=== PATIENT | female | born 1985 | race Caucasian/White ===

== ENCOUNTER 2020-05-26 05:15 | Inpatient (IN) | payer OTHER, SELFPAY ==
[2020-05-26] VITALS (103 sets, daily range): BP systolic 95–159; BP diastolic 50–108; PULSE 57–173; RESP 16; TEMP 36.6–37.6; O2SAT 99–100; BMI 22.7
--- NOTE | 2020-05-26 05:46 | LDADM ---
This patient, Cindy Lewis, was admitted to Labor/Delivery/Recovery 104 on 05/26/20 at 05:15. Plans for labor, pain management and were discussed with patient. Patient/family oriented to hospital policies and general routines including ID bracelet, bed and alarms, visiting hours, pain management, procedures, bathroom and other care routines, personal items, smoking policy, room service/diet and guest tray routines, security routines, and visiting hours. Patient/Family are encouraged to report perceived risks to care and to ask questions if they do not understand what they are told or what they should do. See OBIX for further documentation.
[2020-05-26 05:57] LABS: Basophils Absolute Auto 0.1 K/mm3 (0.0-0.1); Basophils Percent Auto 1.1 % (0.2-1.2); Eosinophils Percent Auto 0.6 % (0-4.4); Hemoglobin 14.9 g/dL (12.0-15.0); Immature Granulocyte Percent A 1.5 % (0-0.5); Lymphocytes Absolute Auto 1.82 K/mm3 (0.9-3.2); Lymphocytes Percent Auto 27.6 % (18.3-44.2); Mean Corpuscular HGB Conc 35.5 g/dl (32-36); Mean Corpuscular Hemoglobin 32.5 pg (26-34); Mean Corpuscular Volume 91.5 fl (80-100); Mean Platelet Volume 10.1 fl (7.4-10.4); Monocytes Absolute Auto 0.3 K/mm3 (0.1-0.6); Neutrophils Absolute Auto 4.2 K/mm3 (1.3-6.7); Neutrophils Percent Auto 64.2 % (45.5-73.1); Platelet Count Result 183 k/mm3 (150-375); Red Blood Count 4.59 M/mm3 (4.2-5.4); Red Cell Distribution Width 12.5 % (11.5-14.5); White Blood Count 6.6 K/mm3 (4.5-10.0)
[2020-05-26 06:11] LABS: Alanine Aminotransferase 12 U/L (4-35); Albumin Level 4.1 g/dL (3.5-5.1); Alkaline Phosphatase 161 U/L (38-126); Anion Gap 8 mmol/L (8-16); Aspartate Amino Transferase 27 U/L (14-36); Bilirubin,Total 0.4 mg/dL (0.2-1.3); Blood Urea Nitrogen 8 mg/dL (7-17); Calcium 8.7 mg/dL (8.4-10.2); Carbon Dioxide 22 mmol/L (22-30); Chloride 105 mmol/L (98-107); Estimated CRCL calculation 125 ml/min; Estimated Glomerular Filt Rate > 60; Glucose 120 mg/dL (65-105); Potassium 3.3 mmol/L (3.4-5.0); Sodium 135 mmol/L (137-145)
--- NOTE | 2020-05-26 06:41 | PM.IMHP ---
H&P: HPI History of Present Illness Date/Time: 05/26/20 06:41 Chief complaint: Induction of Labor Narrative: Cindy Lewis is a 34 year old female 5 para 4 with a last menstrual period of 08/29/2019, EDC of 06/04/2020, presents at 38 and 5 7th weeks gestation for induction of labor. She has had elevated blood pressures with headache. She has not proteinuric but in light of her nearest to 39 weeks with elevated pressures and headache she is admitted for induction. Her cervix is favorable. . She is negative for group B strep Review of Systems Review of Systems: All systems reviewed & are unremarkable except as noted in HPI and below PMFSH Past Medical History Medical History MVP (mitral valve prolapse) Family History Family History Father History of blood clots Cancer Social History Social History Smoking status: Never smoker Substance use: never Gender identity (if verbalized by the patient): Female Spiritual care concerns: No Meds Home Medications and Allergies Home Medications Medication Instructions Recorded Confirmed Type PNV cmb#95-ferrous fumarate-FA 1 tablet PO DAILY 05/09/20 05/09/20 History [] Allergies Allergy/AdvReac Type Severity Reaction Status Date / Time No Known Allergies Allergy Unverified 11/17/17 06:59 Vital Signs Vital Signs - 24 hr 05/26/20 05:51 05/26/20 06:00 05/26/20 06:15 Temperature Pulse Rate 78 73 75 Blood Pressure 143/79 H 132/84 127/73 05/26/20 06:33 Temperature 99 F Pulse Rate Blood Pressure Exam Const: General: no acute distress Eyes: General: appearance normal, both eyes and all related structures Neck: Neck: supple and no JVD Thyroid: thyroid normal Resp: Effort & Inspection: normal respiratory effort Auscultation: clear to auscultation bilaterally Cardio: Rate: regular rate Rhythm: regular rhythm GI: Inspection: non-distended GI Palp: Yes Soft to palpation, No Tenderness to palpation present (GI) and No Guarding due to palpation present (GI) Auscultation: normal bowel sounds : External Female Exam: normal external appearance Speculum Exam - Vagina: normal appearance of the vagina Speculum Exam - Cervix: Cervical os closed (cx 4/75/-2. fhts ok. attempted arom) Skin: General skin exam: no rashes or lesions noted Extrem: General: normal to inspection and no edema Psych: Mental Status: mental status grossly normal Affect: normal affect H&P: Results Labs Labs: Short CBC 05/26/20 Range/Units 05:47 WBC 6.6 (4.5-10.0) K/mm3 Hgb 14.9 (12.0-15.0) g/dL Hct 42.0 (37.0-47.0) % Plt Count 183 (150-375) k/mm3 BMP 05/26/20 05:47 Sodium 135 L Potassium 3.3 L Chloride 105 Carbon Dioxide 22 BUN 8 Creatinine 0.50 L Glucose 120 H Calcium 8.7 Liver Function 05/26/20 Range/Units 05:47 Total Bilirubin 0.4 (0.2-1.3) mg/dL AST 27 (14-36) U/L ALT 12 (4-35) U/L Alkaline Phosphatase 161 H (38-126) U/L Albumin 4.1 (3.5-5.1) g/dL Assessment and Plan Additional Plan impression: 38-,5/7 weeks gestation with elevated pressures Plan: Medical induction of labor / check PIH labs / spontaneous vaginal delivery is expected
[2020-05-26] MEDS: ACETAMINOPHEN 500 MG TABLET 1000 MG PO (06:46)
[2020-05-26 08:16] LABS: Rapid Plasma Reagin Non-Reactive (NonReactive)
[2020-05-26] MEDS: LACTATED RINGERS 1,000 ML 125 ML IV CONT (08:38)
--- NOTE | 2020-05-26 08:57 | WPDANESEPP ---
Anes - Eval Pre Procedure Date/Time: 05/26/20 08:57 Pre Op Diagnosis: Induction of Labor Patient Data Age: 34 Gender: F Height: 5 ft 6 in Weight: 64 kg Last Vital Signs Temp 37.2 C 05/26/20 08:30 Pulse 83 05/26/20 08:46 BP 113/50 L 05/26/20 08:46 Allergies Allergy/AdvReac Type Severity Reaction Status Date / Time No Known Allergies Allergy Unverified 11/17/17 06:59 Home Medications Medication Instructions Recorded Confirmed Type PNV cmb#95-ferrous fumarate-FA 1 tablet PO DAILY 05/09/20 05/09/20 History [] Laboratory Tests 05/26/20 05/26/20 05/26/20 05:47 05:47 05:47 WBC 6.6 K/mm3 K/mm3 (4.5-10.0) RBC 4.59 M/mm3 M/mm3 (4.2-5.4) Hgb 14.9 g/dL g/dL (12.0-15.0) Hct 42.0 % % (37.0-47.0) MCV 91.5 fl fl (80-100) MCH 32.5 pg pg (26-34) MCHC 35.5 g/dl g/dl (32-36) RDW 12.5 % % (11.5-14.5) Plt Count 183 k/mm3 k/mm3 (150-375) MPV 10.1 fl fl (7.4-10.4) Immature Gran % (Auto) 1.5 % H % (0-0.5) Neut % (Auto) 64.2 % % (45.5-73.1) Lymph % (Auto) 27.6 % % (18.3-44.2) Beckham % (Auto) 5.0 % % (2.6-8.5) Eos % (Auto) 0.6 % % (0-4.4) Baso % (Auto) 1.1 % % (0.2-1.2) Lymph # (Auto) 1.82 K/mm3 K/mm3 (0.9-3.2) Beckham # (Auto) 0.3 K/mm3 K/mm3 (0.1-0.6) Eos # (Auto) 0.0 K/mm3 K/mm3 (0-0.3) Baso # (Auto) 0.1 K/mm3 K/mm3 (0.0-0.1) Abs Immat Gran (auto) 0.10 K/mm3 H K/mm3 (0.00-0.031) Absolute Neuts (auto) 4.2 K/mm3 K/mm3 (1.3-6.7) Absolute Nucleated RBC 0.0 K/mm3 K/mm3 (0.0-0.012) Nucleated RBC % 0.0 % % (0.0-0.2) Sodium Potassium Chloride Carbon Dioxide Anion Gap BUN Creatinine Estim Creat Clear Calc Estimated GFR Glucose Uric Acid 4.0 mg/dL mg/dL (2.5-7.5) Calcium Total Bilirubin AST ALT Alkaline Phosphatase Total Protein Albumin RPR Non-reactive (NonReactive) Blood Type Antibody Screen 05/26/20 05/26/20 05:47 05:47 WBC RBC Hgb Hct MCV MCH MCHC RDW Plt Count MPV Immature Gran % (Auto) Neut % (Auto) Lymph % (Auto) Beckham % (Auto) Eos % (Auto) Baso % (Auto) Lymph # (Auto) Beckham # (Auto) Eos # (Auto) Baso # (Auto) Abs Immat Gran (auto) Absolute Neuts (auto) Absolute Nucleated RBC Nucleated RBC % Sodium 135 mmol/L L mmol/L (137-145) Potassium 3.3 mmol/L L mmol/L (3.4-5.0) Chloride 105 mmol/L mmol/L (98-107) Carbon Dioxide 22 mmol/L mmol/L (22-30) Anion Gap 8 mmol/L mmol/L (8-16) BUN 8 mg/dL mg/dL (7-17) Creatinine 0.50 mg/dL L mg/dL (0.7-1.0) Estim Creat Clear Calc 125 ml/min ml/min Estimated GFR > 60 (59 - ) Glucose 120 mg/dL H mg/dL (65-105) Uric Acid Calcium 8.7 mg/dL mg/dL (8.4-10.2) Total Bilirubin 0.4 mg/dL mg/dL (0.2-1.3) AST 27 U/L U/L (14-36) ALT 12 U/L U/L (4-35) Alkaline Phosphatase 161 U/L H U/L (38-126) Total Protein 7.0 g/dL g/dL (6.3-8.2) Albumin 4.1 g/dL g/dL (3.5-5.1) RPR Blood Type A Positive Antibody Screen Negative Patient hx anesthesia problems: none Family hx anesthesia problems: none PMFSH Past Medical History Medical History MVP (mitral valve prolapse) Family History Fam
[2020-05-26] MEDS: OXYTOCIN 30 UNITS/NS 500 ML 30 UNITS/500 ML BAG IV CONT (10:16)
[2020-05-26] MEDS: ONDANSETRON INJ 4 MG/2 ML VIAL IV PUSH (11:01)
--- NOTE | 2020-05-26 12:03 | P.PNOB_ITS ---
OB - PN: Subj Subjective Date/time seen: 05/26/20 12:03 cx 6.5 by rn exam fhts ok comfortable OB - PN: Obj Data Labs CBC & Chem 7: 05/26/20 05:47 05/26/20 05:47 Labs: Laboratory Results - last 24 hr 05/26/20 05/26/20 05/26/20 05:47 05:47 05:47 WBC 6.6 RBC 4.59 Hgb 14.9 Hct 42.0 MCV 91.5 MCH 32.5 MCHC 35.5 RDW 12.5 Plt Count 183 MPV 10.1 Immature Gran % (Auto) 1.5 H Neut % (Auto) 64.2 Lymph % (Auto) 27.6 Jenkins % (Auto) 5.0 Eos % (Auto) 0.6 Baso % (Auto) 1.1 Lymph # (Auto) 1.82 Jenkins # (Auto) 0.3 Eos # (Auto) 0.0 Baso # (Auto) 0.1 Abs Immat Gran (auto) 0.10 H Absolute Neuts (auto) 4.2 Absolute Nucleated RBC 0.0 Nucleated RBC % 0.0 Sodium Potassium Chloride Carbon Dioxide Anion Gap BUN Creatinine Estim Creat Clear Calc Estimated GFR Glucose Uric Acid 4.0 Calcium Total Bilirubin AST ALT Alkaline Phosphatase Total Protein Albumin RPR Non-reactive Blood Type Antibody Screen 05/26/20 05/26/20 05:47 05:47 WBC RBC Hgb Hct MCV MCH MCHC RDW Plt Count MPV Immature Gran % (Auto) Neut % (Auto) Lymph % (Auto) Jenkins % (Auto) Eos % (Auto) Baso % (Auto) Lymph # (Auto) Jenkins # (Auto) Eos # (Auto) Baso # (Auto) Abs Immat Gran (auto) Absolute Neuts (auto) Absolute Nucleated RBC Nucleated RBC % Sodium 135 L Potassium 3.3 L Chloride 105 Carbon Dioxide 22 Anion Gap 8 BUN 8 Creatinine 0.50 L Estim Creat Clear Calc 125 Estimated GFR > 60 Glucose 120 H Uric Acid Calcium 8.7 Total Bilirubin 0.4 AST 27 ALT 12 Alkaline Phosphatase 161 H Total Protein 7.0 Albumin 4.1 RPR Blood Type A Positive Antibody Screen Negative OB - PN A/P Time Spent With Patient Time: Total time spent is greater than 50% in coordination of care (as documented) at patient's floor/unit and/or counseling patient:
--- NOTE | 2020-05-26 13:38 | PM.OBPRVD ---
OB - Delivery Note Procedure Delivery date: 05/26/20 Intrapartal events: None Induction method: AROM Delivery augmentation: pitocin Delivery monitor: external FHT Route of delivery: Laceration description: Perineal - 2nd Degree Delivery repair: vicryl Specimen: No Estimated blood loss (mL): 57 Anesthesia type: Epidural Disposition: floor [place] Baby Date of : 05/26/20 Time of : 13:26 Weeks of gestation at delivery: 38 gender: Male Weight (pounds): 7 Weight (ounces): 8 presentation: vertex position: Right Occiput Anterior Placenta delivery description: Spontaneous cord vessel description: 3 Vessels score one minute: 9 score five minutes: 9
[2020-05-26] MEDS: OXYTOCIN 30 UNITS/NS 500 ML 30 UNITS/500 ML BAG 125 UNITS IV CONT (14:16)
[2020-05-26] MEDS: DOCUSATE SODIUM 100 MG CAPSULE PO (17:28)
[2020-05-26] MEDS: IBUPROFEN 600 MG TABLET PO (17:28)
[2020-05-26] MEDS: BENZOCAINE 20% AER SPR (*SP) 56 GM CAN 1 SPRAY TOPICAL (17:30)
[2020-05-26] MEDS: WITCH HAZEL 40 PADS 1 PAD TOPICAL (17:30)
--- NOTE | 2020-05-26 18:47 | PC.NURSE ---
1651 Pt admitted to room 283 per wheelchair from labor and delivery after spontaneous vaginal delivery of viable male infant at [address] Lizeth Power. Mother is a and is choosing to bottle feed infant; , FOB present; couple oriented to room , staffing and procedures; admission folder reviewed. Pt's VSS and assessment WNL.
[2020-05-26] MEDS: ACETAMINOPHEN 325 MG TABLET 650 MG PO (22:30)
[2020-05-27] MEDS: IBUPROFEN 600 MG TABLET PO ×2 (05:01→11:50)
[2020-05-27 05:31] LABS: Hematocrit 32.5 % (37.0-47.0); Hemoglobin 11.3 g/dL (12.0-15.0)
--- NOTE | 2020-05-27 06:45 | PC.NURSE ---
Pt introductions made and plan of care discussed per post , pain management, bottle feeding, daily care activities and pending discharge to home. PT verbalized understanding of such care.
--- NOTE | 2020-05-27 06:46 | PM.OBPNVD ---
OB - PN: Subj Subjective Date/time seen: 05/27/20 06:46 Patient comments: no complaints and pain well controlled baby status: doing well and nursing well OB - PN: Obj Data Labs CBC & Chem 7: 05/27/20 05:01 05/26/20 05:47 Labs: Laboratory Results - last 24 hr 05/26/20 05/26/20 05/27/20 05:47 05:47 05:01 Hgb 11.3 L D Hct 32.5 L RPR Non-reactive Blood Type A Positive Antibody Screen Negative OB - PN A/P Plan day: 1 Plan: routine care, discharge home and follow up 6 weeks Time Spent With Patient Time: Total time spent is greater than 50% in coordination of care (as documented) at patient's floor/unit and/or counseling patient: Time with patient: less than 15 minutes Review of Systems Review of Systems: All systems reviewed & are unremarkable except as noted in HPI and below Exam Const: General: no acute distress Eyes: General: appearance normal, both eyes and all related structures Neck: Neck: supple and no JVD Thyroid: thyroid normal Resp: Effort & Inspection: normal respiratory effort Auscultation: clear to auscultation bilaterally Cardio: Rate: regular rate Rhythm: regular rhythm GI: Inspection: non-distended GI Palp: Yes Soft to palpation, No Tenderness to palpation present (GI) and No Guarding due to palpation present (GI) Auscultation: normal bowel sounds : General: Yes bladder normal to palpation External Female Exam: normal external appearance Speculum Exam - Vagina: normal vaginal discharge and No vaginal bleeding Speculum Exam - Cervix: nontender Bimanual exam- vagina & uterus: bladder normal to palpation and No Cervical tenderness present OB/external & speculum: No vaginal bleeding Skin: General skin exam: no rashes or lesions noted Extrem: General: normal to inspection and no edema Psych: Mental Status: mental status grossly normal Affect: normal affect
--- NOTE | 2020-05-27 06:51 | P.DS_ITS ---
DS: Admitting Diagnosis Admitting Diagnosis Admitting Diagnosis: term/gestational htn DS: Summary Time Spent with Patient Time attestation: Total time spent providing and/or coordinating discharge services: Exam Const: General: no acute distress Eyes: General: appearance normal, both eyes and all related structures Neck: Neck: supple and no JVD Thyroid: thyroid normal Resp: Effort & Inspection: normal respiratory effort Auscultation: clear to auscultation bilaterally Cardio: Rate: regular rate Rhythm: regular rhythm GI: Inspection: non-distended GI Palp: Yes Soft to palpation, No Tenderness to palpation present (GI) and No Guarding due to palpation present (GI) Auscultation: normal bowel sounds : General: Yes bladder normal to palpation External Female Exam: normal external appearance Speculum Exam - Vagina: normal vaginal discharge and No vaginal bleeding Speculum Exam - Cervix: nontender Bimanual exam- vagina & uterus: bladder normal to palpation and No Cervical tenderness present OB/external & speculum: No vaginal bleeding Skin: General skin exam: no rashes or lesions noted Extrem: General: normal to inspection and no edema Psych: Mental Status: mental status grossly normal Affect: normal affect DS: Data Data Completed and Pending Labs on day of discharge: Labs from last 24 hours 05/27/20 05/26/20 05/26/20 05:01 05:47 05:47 Hgb 11.3 L D Hct 32.5 L RPR Non-reactive Blood Type A Positive Antibody Screen Negative Discharge Plan Discharge Attending physician on discharge: Ramakrishna Ventura Consulting providers: Elio Alves Discharging Clinician: Ramakrishna Ventura Patient Disposition: Home, Self-Care Activity: may shower, no straining and pelvic rest Diet: heart healthy Patient Instructions: Antibiotic Form Stand Alone Forms: General Discharge Information Follow-up/Referrals: Ramakrishna Ventura MD [Physician] - Discharge Medications: Continued PNV cmb#95-ferrous fumarate-FA [] 28 mg iron- 800 mcg Tablet 1 tablet PO DAILY RF: 0 Date of admission: 05/26/20 05:15 Primary Care Provider: PHYSICIAN,DIRECTOR OF INTERCOLLEGIATE ATHLETICS Admitting Provider: Ramakrishna Ventura Attending physician on admission: Ramakrishna Ventura
[2020-05-27 07:50] VITALS: BP 100/62; PULSE 67; RESP 16; TEMP 36.9; O2SAT 96
--- NOTE | 2020-05-27 07:52 | WPDANLDPN2 ---
Anes-Prog Note L&D Date/Time: 05/27/20 07:52 Comfortable throughout: labor and delivery Neuraxial method: epidural Epidural/Spinal procedure site: clean & non-tender Neuro status: Neuro function grossly intact. Cardiovascular status: normal Respiratory status: normal Airway patency: baseline Mental status: baseline Post-Op hydration status: normal Vital Signs: Last Vital Signs Temp 36.6 C 05/26/20 17:51 Pulse 62 05/26/20 17:51 Resp 16 05/26/20 17:51 BP 127/62 05/26/20 17:51 Pulse Ox 100 05/26/20 17:51 I/O: Intake & Output 05/26/20 05/26/20 05/27/20 15:59 23:59 07:59 Intake Total 500 Output Total 57 Balance 443 Post-procedural complaints: none Patient feedback: Patient satisfied with anesthetic care.
[2020-05-27] MEDS: DOCUSATE SODIUM 100 MG CAPSULE PO (09:43)
[2020-05-27] MEDS: ACETAMINOPHEN 325 MG TABLET 650 MG PO (09:43)
--- NOTE | 2020-05-27 10:46 | PC.NURSE ---
Patient was given the opportunity to view the discharge video Mother & Baby Care, The First Two Weeks and to ask questions. Patient declined viewing the video and has been given the mother/baby guide for home reference.
--- NOTE | 2020-05-27 14:48 | PC.NURSE ---
PT received discharge instructions per protocol and verbalized understanding of such instructions.
--- NOTE | 2020-05-27 16:15 | PC.NURSE ---
PT discharged to home ambulatory accompanied by spouse and to waiting car. Follow up appts confirmed
[2020-05-28 11:30] VITALS: BP 127/74; PULSE 74; RESP 20; O2SAT 99
== END 2020-05-27 16:15 | disposition home or self-care (01) | DRG 807 ==
LOC: ANHLDR 05:19 → ANHOB2 16:54
PROVIDERS: Admitting Provider Obstetrics & Gynecology; Visit Provider Obstetrics & Gynecology
DX: O13.4 Gestational [pregnancy-induced] hypertension without significant proteinuria, complicating childbirth (principal); Z37.0 Single live birth; Z3A.38 38 weeks gestation of pregnancy; O70.1 Second degree perineal laceration during delivery; O99.42 Diseases of the circulatory system complicating childbirth; I34.1 Nonrheumatic mitral (valve) prolapse
CPT/HCPCS: 36415; 80053; 84550; 85014; 85018; 85025; 86592; 86850; 86900; 86901; A9270; J2405; J2590; J2795; J7120

== ENCOUNTER 2021-07-09 12:56 | Outpatient (CLI) | payer OTHER, SELFPAY ==
--- NOTE | ~2021-07-09 | US_ITS ---
EXAMINATION: US soft tissue abdomen EXAM DATE: 07/09/2021 13:50 INDICATION: Umbilical hernia w/o obstruction and w/o gangrene. TECHNIQUE: Multiple grayscale and Doppler images of the umbilical symptomatic region were obtained (anna y a technologist who performed the scan) and subsequently reviewed. There is no prior study for angel pack. FINDINGS: Probable identification of small umbilical region hernia, herniation measuring about 7 mm in diameter . This region is isoechoic to the surrounding subcutaneous fat. IMPRESSION: 1. Probable small umbilical fat-containing hernia. Reviewed, dictated and finalized at location B.
--- NOTE | ~2021-07-09 | US_ITS ---
EXAMINATION: US retroperitoneal duplex ltd EXAM DATE: 07/09/2021 13:49 INDICATION: Essential hypertension . TECHNIQUE: Multiple grayscale and Doppler images of the kidneys and renal arteries were obtained. T here is no prior study for comparison. FINDINGS: The aorta peak systolic velocity is 106 cm/s. Renal arteries interrogated in several segments from origin to hilum. RIGHT RENAL ARTERY Proximal segment (origin): 134 cm/s. Distal segment (hilum): 82 cm/s. LEFT RENAL ARTERY Proximal segment (origin): 116 cm/s. Distal segment (hilum): 120 cm/s. IMPRESSION: 1. Renal artery Doppler velocities within normal limits. Reviewed, dictated and finalized at location B.
== END 2021-07-09 12:57 ==
PROVIDERS: PCP Physician Assistant; Visit Provider Physician Assistant
DX: K42.9 Umbilical hernia without obstruction or gangrene (principal); I10 Essential (primary) hypertension
CPT/HCPCS: 76705; 93976

== ENCOUNTER → 2021-10-18 01:33 | Outpatient (CLI) | payer OTHER, SELFPAY ==
[2021-10-18 21:23] LABS: SARS-CoV-2 RNA PCR Negative
== END ==
PROVIDERS: PCP Physician Assistant; Visit Provider Physician Assistant
DX: R68.89 Other general symptoms and signs (principal); Z20.822 Contact with and (suspected) exposure to COVID-19
CPT/HCPCS: C9803; U0003; U0005

== ENCOUNTER 2022-08-12 15:21 | Outpatient (CLI) | payer OTHER, SELFPAY | END 2022-08-12 15:22 | disposition home or self-care (01) | LOC: ANHLAB 15:25 | PROVIDERS: PCP Physician Assistant; Visit Provider Obstetrics & Gynecology | DX: Z34.80 Encounter for supervision of other normal pregnancy, unspecified trimester (principal); Z3A.00 Weeks of gestation of pregnancy not specified | CPT/HCPCS: 36415; 84702 ==

== ENCOUNTER 2023-03-06 11:42 | Observation (INO) | payer OTHER, SELFPAY ==
[2023-03-06] MEDS: TERBUTALINE SULFATE 1 MG/ML VIAL 0.25 MG SUB-Q (12:05)
[2023-03-06 13:09] VITALS: BP 120/68; PULSE 80
[2023-03-06 13:31] VITALS: BP 119/77; PULSE 83
[2023-03-06 13:34] VITALS: BMI 24.2
--- NOTE | 2023-03-07 11:04 | PM.OBTRLD ---
OB - Triage/Final Diagnosis Visit Information Date of evaluation: 03/06/23 Reason for evaluation: threatened labor and other (twin ) Comments/Additional reasons for admission: I have assessed the risk for this patient, Cindy Lewis, and determined that she would benefit from observation care. Evaluation Vital signs: Vital Signs - 24 hr 03/06/23 13:09 03/06/23 13:31 03/06/23 13:34 Pulse Rate 80 83 Blood Pressure 120/68 119/77 Oxygen Delivery Room Air
== END 2023-03-06 13:50 | disposition home or self-care (01) ==
PROVIDERS: Admitting Provider Obstetrics & Gynecology; PCP Physician Assistant; Visit Provider Obstetrics & Gynecology
DX: O47.03 False labor before 37 completed weeks of gestation, third trimester (principal); O30.003 Twin pregnancy, unspecified number of placenta and unspecified number of amniotic sacs, third trimester; Z3A.34 34 weeks gestation of pregnancy
CPT/HCPCS: 59025; 96372; G0378; G0379; J3105

== ENCOUNTER 2023-03-27 09:33 | Outpatient (RCR) | payer OTHER, SELFPAY ==
[2023-02-20] VITALS (8 sets, daily range): BP systolic 124; BP diastolic 69; PULSE 66–75; O2SAT 100
[2023-02-27 10:08] VITALS: BP 120/53; PULSE 69
[2023-03-06 11:22] VITALS: BP 118/71; PULSE 81
[2023-03-13 09:35] VITALS: BP 117/67; PULSE 81
[2023-03-20 10:36] VITALS: BP 122/81; PULSE 81
[2023-03-27 10:20] VITALS: BP 131/82; PULSE 70
== END 2023-05-21 23:59 | disposition home or self-care (01) ==
LOC: ANHOBOP 09:33
PROVIDERS: PCP Physician Assistant; Visit Provider Obstetrics & Gynecology
DX: O30.003 Twin pregnancy, unspecified number of placenta and unspecified number of amniotic sacs, third trimester (principal); Z3A.32 32 weeks gestation of pregnancy
CPT/HCPCS: 59025

== ENCOUNTER 2023-03-30 05:10 | Inpatient (IN) | payer OTHER, SELFPAY ==
[2023-03-30] VITALS (160 sets, daily range): BP systolic 125–174; BP diastolic 62–114; PULSE 60–134; RESP 18; TEMP 36.4–37.3; O2SAT 98–100; BMI 25.2
--- NOTE | 2023-03-30 05:41 | LDADM ---
This patient, Cindy Lewis, was admitted to Labor/Delivery/Recovery 101 on 03/30/23 at 05:10. Plans for labor, pain management and were discussed with patient. Patient/family oriented to hospital policies and general routines including ID bracelet, bed and alarms, visiting hours, pain management, procedures, bathroom and other care routines, personal items, smoking policy, room service/diet and guest tray routines, security routines, and visiting hours. Patient/Family are encouraged to report perceived risks to care and to ask questions if they do not understand what they are told or what they should do. See OBIX for further documentation.
[2023-03-30 05:46] LABS: Basophils Absolute Auto 0.1 K/mm3 (0.0-0.1); Basophils Percent Auto 1.5 % (0.2-1.2); Eosinophils Absolute Auto 0.1 K/mm3 (0-0.3); Eosinophils Percent Auto 0.8 % (0-4.4); Hematocrit 42.1 % (37.0-47.0); Hemoglobin 13.7 g/dL (12.0-15.0); Immature Granulocyte Absolute 0.11 K/mm3 (0.00-0.031); Immature Granulocyte Percent A 1.8 % (0-0.5); Lymphocytes Absolute Auto 1.88 K/mm3 (0.9-3.2); Lymphocytes Percent Auto 31.2 % (18.3-44.2); Mean Corpuscular HGB Conc 32.5 g/dl (32-36); Mean Corpuscular Hemoglobin 28.9 pg (26-34); Mean Corpuscular Volume 88.8 fl (80-100); Mean Platelet Volume 10.8 fl (7.4-10.4); Monocytes Absolute Auto 0.3 K/mm3 (0.1-0.6); Monocytes Percent Auto 5.1 % (2.6-8.5); Neutrophils Absolute Auto 3.6 K/mm3 (1.3-6.7); Neutrophils Percent Auto 59.6 % (45.5-73.1); Platelet Count Result 177 k/mm3 (150-375); Red Blood Count 4.74 M/mm3 (4.2-5.4)
--- NOTE | 2023-03-30 06:12 | PM.IMHP ---
H&P: HPI History of Present Illness Date/Time: 03/30/23 06:12 Chief Complaint: Induction of labor at term Narrative: this is a 37-year-old 6 para 5 with twins mono diamniotic was ablated at 38 weeks gestation for induction of labor secondary to mildly elevated blood pressures. First baby is vertex 2nd was transverse. We will resume benefits of the procedure reviewed pH labs were being drawn the [facility] Past Medical History Medical History (Updated 03/30/23 @ 06:14 by Ramakrishna Power MD) MVP (mitral valve prolapse) Family History Family History Father History of blood clots Cancer Social History Social History Smoking status: Never smoker Substance use: never Lack of Transportation: No Lack of Food: Never True Current Housing: I Have Housing Concerned About Future Housing: No Difficulty Paying Gas/Electric Bills: No Difficulty Paying for Meds: No Currently Unemployed: No Education: Bachelor's Degree Difficulty w/ Childcare or Family Care: No Gender identity (if verbalized by the patient): Female Spiritual care concerns: No Meds Home Medications and Allergies Home Medications Medication Instructions Recorded Confirmed Type vit no.95-ferrous 1 tablet PO DAILY 05/09/20 05/09/20 History fumarate 28 mg-folic acid 800 mcg tablet () Allergies Allergy/AdvReac Type Severity Reaction Status Date / Time No Known Allergies Allergy Unverified 11/17/17 06:59 Exam Const: General: cooperative, healthy appearing and comfortable Nutritional Appearance: average body habitus Orientation/consciousness: oriented to person, oriented to place and oriented to time HENMT: Head: normal to inspection Resp: Effort & Inspection: normal respiratory effort Cardio: Rate: regular rate Rhythm: regular rhythm Heart sounds: S1 normal heart sound present and S2 normal heart sound present GI: Inspection: normal to inspection ( gravid soft uterus) Auscultation: normal bowel sounds : External Female Exam: normal external appearance Speculum Exam - Vagina: normal appearance of the vagina Speculum Exam - Cervix: normal appearance of the cervix ( cervix 4/80/1. AROM clear. FHTs reassuring x2) H&P: Results Labs Labs: Short CBC 06/15/23 Range/Units 05:28 WBC 6.0 (4.5-10.0) K/mm3 Hgb 13.7 (12.0-15.0) g/dL Hct 42.1 (37.0-47.0) % Plt Count 177 (150-375) k/mm3 Assessment and Plan Assessment and plan (1) Twin : Code(s): O30.009 - Twin , unspecified number of placenta and unspecified number of amniotic sacs, unspecified trimester Status: Acute (2) Term : Code(s): Z34.90 - Encounter for supervision of normal , unspecified, unspecified trimester Status: Acute Plan medical induction of labor. Spontaneous vaginal delivery expected. She is an epidural candidate. Double setup OB undertaken
[2023-03-30] MEDS: AMPICILLIN 2 GM/NS 100 ML 2 GM/100 ML BAG IVPB (06:27)
[2023-03-30] MEDS: LACTATED RINGERS 1,000 ML 125 ML IV CONT ×3 (06:27→12:03)
[2023-03-30] MEDS: OXYTOCIN 30 UNITS/NS 500 ML 30 UNITS/500 ML BAG IV CONT (06:28)
--- NOTE | 2023-03-30 07:18 | WPDANESEPPF ---
Anes - Initial Pre Proc Eval Procedure: labor epidural Date/Time: 03/30/23 07:18 Surgeon: Ramakrishna Power MD Pre Op Diagnosis: IUP, labor pain Pre Op Diagnosis: Induction of Labor Patient Data Age: 37 Gender: F Height: 1.68 m Weight: 71 kg Allergies Allergy/AdvReac Type Severity Reaction Status Date / Time No Known Allergies Allergy Unverified 11/17/17 06:59 Home Medications Medication Instructions Recorded Confirmed Type vit no.95-ferrous 1 tablet PO DAILY 05/09/20 05/09/20 History fumarate 28 mg-folic acid 800 mcg tablet () Laboratory Tests 03/30/23 05:28 WBC 6.0 K/mm3 (4.5-10.0) RBC 4.74 M/mm3 (4.2-5.4) Hgb 13.7 g/dL (12.0-15.0) Hct 42.1 % (37.0-47.0) MCV 88.8 fl (80-100) MCH 28.9 pg (26-34) MCHC 32.5 g/dl (32-36) RDW 13.0 % (11.5-14.5) Plt Count 177 k/mm3 (150-375) MPV 10.8 H fl (7.4-10.4) Immature Gran % (Auto) 1.8 H % (0-0.5) Neut % (Auto) 59.6 % (45.5-73.1) Lymph % (Auto) 31.2 % (18.3-44.2) Sutter % (Auto) 5.1 % (2.6-8.5) Eos % (Auto) 0.8 % (0-4.4) Baso % (Auto) 1.5 H % (0.2-1.2) Lymph # (Auto) 1.88 K/mm3 (0.9-3.2) Sutter # (Auto) 0.3 K/mm3 (0.1-0.6) Eos # (Auto) 0.1 K/mm3 (0-0.3) Baso # (Auto) 0.1 K/mm3 (0.0-0.1) Abs Immat Gran (auto) 0.11 H K/mm3 (0.00-0.031) Absolute Neuts (auto) 3.6 K/mm3 (1.3-6.7) Absolute Nucleated RBC 0.0 K/mm3 (0.0-0.012) Nucleated RBC % 0.0 % (0.0-0.2) RPR Pending Blood Type A Positive Antibody Screen Positive Antibody Identification Pending Antigen Identification Pending LAUREL, IgG Interpret Not Performed LAUREL, Poly Interpret Neg LAUREL, Complement Interp Not Performed HCG: positive (CELINE 04/14/23) Patient hx anesthesia problems: none Family hx anesthesia problems: none Results Review: All pre-operative results and documents have been reviewed as part of the pre-operative evaluation. [facility] Past Medical History Medical History MVP (mitral valve prolapse) Family History Family History Father History of blood clots Cancer Social History Social History Smoking status: Never smoker Substance use: never Lack of Transportation: No Lack of Food: Never True Current Housing: I Have Housing Concerned About Future Housing: No Difficulty Paying Gas/Electric Bills: No Difficulty Paying for Meds: No Currently Unemployed: No Education: Bachelor's Degree Difficulty w/ Childcare or Family Care: No Gender identity (if verbalized by the patient): Female Spiritual care concerns: No Anes - Eval Final PreProcedure Day of Procedure 03/30/23 07:18 Neurological: alert and oriented Last oral intake: >/= 8 hours ASA classification: III Emergent: no Anesthetic plan: proceed Anesthesia type and monitoring: regional epidural Results Review: All pre-operative results and documents have been reviewed as part of the pre-operative evaluation. Informed Consent: The patient's anesthetic plan and its attendant risks and benefits were discussed with the patient/family/POA. Questions were solicited and answers provided to the satisfaction of the patient/family/POA.
[2023-03-30 09:12] LABS: Alanine Aminotransferase 16 U/L (6-35); Albumin Level 3.7 g/dL (3.5-5.1); Alkaline Phosphatase 182 U/L (38-126); Anion Gap 6 mmol/L (8-16); Aspartate Amino Transferase 34 U/L (14-36); Bilirubin,Total 0.4 mg/dL (0.2-1.3); Blood Urea Nitrogen 9 mg/dL (7-17); Calcium 8.1 mg/dL (8.4-10.2); Carbon Dioxide 23 mmol/L (22-30); Chloride 108 mmol/L (98-107); Estimated CRCL calculation 103 ml/min; Estimated Glomerular Filt Rate > 60; Glucose 64 mg/dL (65-110); Potassium 3.6 mmol/L (3.4-5.0); Sodium 137 mmol/L (137-145); Uric Acid 5.5 mg/dL (2.5-7.5)
[2023-03-30] MEDS: AMPICILLIN 1 GM/NS 50 ML 1 GM/50 ML BAG IVPB (10:31)
--- NOTE | 2023-03-30 12:11 | PM.OBPNLAB ---
Pain Control Date/time seen: 03/30/23 12:11 Pain control: tolerating well and epidural Pelvic Exam Dilation (cm): 8 Effacement (%): 80 station: -1 Amniotic membrane status: Leaking
[2023-03-30] MEDS: CALCIUM CARBONATE (TUMS) 500 MG (200 MG ELEMENTAL) PO (13:00)
[2023-03-30 14:00] LABS: Rapid Plasma Reagin Non-Reactive (NonReactive)
--- NOTE | 2023-03-30 14:55 | PM.OBPRVD ---
OB - Delivery Note Procedure Delivery date: 03/30/23 Procedure: mil Events: Gestational Hypertension Induction method: AROM Delivery augmentation: Pitocin Delivery monitor: External FHT and External Uterine Route of delivery: Episiotomy description: None Laceration Description: Perineal - 2nd Degree Delivery repair: vicryl Specimen: No Quantitative Blood Loss (ml): 160 Anesthesia type: Epidural Disposition: Floor Baby Date of : 03/30/23 Weeks of gestation at delivery: 38 gender: Female Weight (pounds): 5 Weight (ounces): 4 presentation: vertex position: Right Occiput Anterior Placenta delivery description: Spontaneous Cord Vessel Description: 3 Vessels score one minute: 8 score five minutes: 9 Twins 2: Date of : 03/30/23 Weeks of gestation at delivery: 38 Infant gender: Female Weight (pounds): 6 Weight (ounces): 1 presentation: breech position: Right Sacrum Anterior Placental delivery description: Spontaneous Cord Vessel Description: 3 Vessels score one minute: 8 score five minutes: 9
[2023-03-30] MEDS: OXYTOCIN 30 UNITS/NS 500 ML 30 UNITS/500 ML BAG 125 UNITS IV CONT (15:16)
[2023-03-30] MEDS: ACETAMINOPHEN 325 MG TABLET 650 MG PO (15:44)
[2023-03-30] MEDS: WITCH HAZEL 40 PADS 1 PAD TOPICAL (15:46)
--- NOTE | 2023-03-30 18:25 | PC.NURSE ---
Patient transferred to post room # 277 via (W/C). Support person present. Oriented to unit, room, information board, rooming in, admission packet and security measures. Patient verbalizes understanding.
[2023-03-31] MEDS: IBUPROFEN 600 MG TABLET PO ×3 (00:19→17:53)
[2023-03-31 01:14] VITALS: BP 136/89; PULSE 64; RESP 16; TEMP 37; O2SAT 98
[2023-03-31 05:06] VITALS: BP 125/78; PULSE 87; RESP 18; TEMP 36.6; O2SAT 98
[2023-03-31] MEDS: ACETAMINOPHEN 325 MG TABLET 650 MG PO ×3 (05:18→17:53)
[2023-03-31 05:55] LABS: Hematocrit 31.6 % (37.0-47.0); Hemoglobin 10.3 g/dL (12.0-15.0)
--- NOTE | 2023-03-31 08:30 | PC.NURSE ---
PT introductions made and plan of care discussed per post , pain management, bottle feeding, daily care activities and pending discharge to home. PT and spouse both recipients of such instructions and no barriers to learning identified. PT received such instructions per one to one discussion, mom baby care guide and demonstrations this shift. PT verbalized understanding of such care.
[2023-03-31 08:48] VITALS: PULSE 64; RESP 16; O2SAT 99
[2023-03-31] MEDS: MULTIVIT/MIN/PREN/FOL AC/IRON TABLET 1 TAB PO (08:48)
[2023-03-31] MEDS: DOCUSATE SODIUM 100 MG CAPSULE PO ×2 (08:48→17:54)
[2023-03-31 08:50] VITALS: BP 127/65; PULSE 63; RESP 16; TEMP 36.5; O2SAT 98
--- NOTE | 2023-03-31 08:50 | PM.DS ---
DS: Admitting Diagnosis Discharge Date 03/31/2023 Admitting Diagnosis twin at 38 weeks gestation with mild gestational hypertension DS: Discharge Diagnosis Discharge Diagnosis (1) Term : Code(s): Z34.90 - Encounter for supervision of normal , unspecified, unspecified trimester Status: Acute (2) Twin : Code(s): O30.009 - Twin , unspecified number of placenta and unspecified number of amniotic sacs, unspecified trimester Status: Acute (3) Gestational hypertension: Code(s): O13.9 - Gestational [-induced] hypertension without significant proteinuria, unspecified trimester Status: Acute DS: Summary Hospital Course Reason for hospitalization: induction of labor at term twins Hospital Course: patient underwent successful medical induction of labor for twins on 03/30/2023. Baby a was vertex baby B was breech. Her 24hour course was unremarkable. Her blood pressures remained stable. She was up, voiding difficulty, eating ambulating, breast-feeding, generally without complaints. Time Spent with Patient Time attestation: Total time spent providing and/or coordinating discharge services: Exam Const: General: cooperative, healthy appearing and comfortable Nutritional Appearance: average body habitus Orientation/consciousness: oriented to person, oriented to place and oriented to time HENMT: Head: normal to inspection Resp: Effort & Inspection: normal respiratory effort GI: Inspection: normal to inspection ( Fundus firm below the umbilicus) DS: Data Data Completed and Pending Labs on day of discharge: Labs from last 24 hours 03/31/23 03/30/23 03/30/23 05:45 08:38 05:28 Hgb 10.3 L D Hct 31.6 L Sodium 137 Potassium 3.6 Chloride 108 H Carbon Dioxide 23 Anion Gap 6 L BUN 9 Creatinine 0.60 L Estim Creat Clear Calc 103 Estimated GFR > 60 Glucose 64 L Uric Acid 5.5 Calcium 8.1 L Total Bilirubin 0.4 AST 34 ALT 16 Alkaline Phosphatase 182 H Total Protein 7.0 Albumin 3.7 RPR Non-reactive Antibody Identification Inconclusive Antigen Identification TNP Discharge Plan Discharge Attending physician on discharge: Ramakrishna Morales Discharging Clinician: Ramakrishna Morales Patient Disposition: Home, Self-Care Activity: may shower and pelvic rest Diet: heart healthy Patient Instructions: Antibiotic Form Stand Alone Forms: General Discharge Information Follow-up/Referrals: Ramakrishna Morales MD [Physician] - Discharge Medications: Continued PNV cmb#95-ferrous fumarate-FA [] 28 mg iron- 800 mcg Tablet 1 tablet PO DAILY Date of admission: 03/30/23 05:10 Primary Care Provider: Tere,Bessie Fowler Admitting Provider: Ramakrishna Morales Attending physician on admission: Ramakrishna Morales Condition: Stable
--- NOTE | 2023-03-31 08:53 | PM.OBPNVD ---
OB - PN: Subj Subjective Date/time seen: 03/31/23 08:53 Patient comments: no complaints and pain well controlled baby status: doing well and nursing well OB - PN: Obj Data Labs 03/31/23 05:45 03/30/23 08:38 Labs: Laboratory Results - last 24 hr 03/30/23 03/30/23 03/31/23 05:28 08:38 05:45 Hgb 10.3 L D Hct 31.6 L Sodium 137 Potassium 3.6 Chloride 108 H Carbon Dioxide 23 Anion Gap 6 L BUN 9 Creatinine 0.60 L Estim Creat Clear Calc 103 Estimated GFR > 60 Glucose 64 L Uric Acid 5.5 Calcium 8.1 L Total Bilirubin 0.4 AST 34 ALT 16 Alkaline Phosphatase 182 H Total Protein 7.0 Albumin 3.7 RPR Non-reactive Antibody Identification Inconclusive Antigen Identification TNP OB - PN A/P Plan day: 1 Plan: routine care, discharge home and follow up 6 weeks Time Spent With Patient Time: Total time spent is greater than 50% in coordination of care (as documented) at patient's floor/unit and/or counseling patient: Time with patient: less than 15 minutes Exam Const: General: cooperative, healthy appearing and comfortable Nutritional Appearance: average body habitus Orientation/consciousness: oriented to person, oriented to place and oriented to time Limitations: no limitations Resp: Effort & Inspection: normal respiratory effort GI: Inspection: normal to inspection ( fundus firm below the umbilicus)
[2023-03-31 12:20] VITALS: BP 125/63; PULSE 64; RESP 16; TEMP 37.1; O2SAT 99
--- NOTE | 2023-03-31 12:59 | WPDANLDPN2 ---
Anes-Prog Note L&D Date/Time: 03/31/23 12:59 Neuro status: Neuro function grossly intact. Vital Signs: Last Vital Signs Temp 37.1 C 03/31/23 12:20 Pulse 64 03/31/23 12:20 Resp 16 03/31/23 12:20 BP 125/63 03/31/23 12:20 Pulse Ox 99 03/31/23 12:20 O2 Del Method Room Air 03/30/23 20:52 Pain score (VAS): 0 I/O: Intake & Output 03/30/23 03/31/23 03/31/23 23:59 07:59 15:59 Intake Total 1000 550 Output Total 568 820 Balance 432 -270 Patient feedback: Patient satisfied with anesthetic care.
[2023-03-31] MEDS: TETANUS,DIPHTHERIA,AC PERTUSSIS ADULT (0.5 ML) BOOSTRIX IM (13:51)
--- NOTE | 2023-03-31 17:23 | PC.NURSE ---
PT received discharge instructions per protocol and verbalized understanding of such care.
--- NOTE | 2023-03-31 18:22 | PC.NURSE ---
PT discharged to home ambulatory accompanied by spouse and infants and taken to waiting car. follow up appts confirmed
[2023-04-03 10:36] VITALS: BP 132/90; PULSE 68; RESP 18; TEMP 36.7; O2SAT 100
== END 2023-03-31 18:22 | disposition home or self-care (01) | DRG 805 ==
LOC: ANHLDR 05:14 → ANHOB2 18:38
PROVIDERS: Admitting Provider Obstetrics & Gynecology; PCP Physician Assistant; Visit Provider Obstetrics & Gynecology
DX: O30.033 Twin pregnancy, monochorionic/diamniotic, third trimester (principal); O99.42 Diseases of the circulatory system complicating childbirth; Z37.2 Twins, both liveborn; O32.8XX2 Maternal care for other malpresentation of fetus, fetus 2; I34.1 Nonrheumatic mitral (valve) prolapse; O13.4 Gestational [pregnancy-induced] hypertension without significant proteinuria, complicating childbirth; O70.1 Second degree perineal laceration during delivery; Z3A.37 37 weeks gestation of pregnancy
CPT/HCPCS: 36415; 59025; 80053; 84550; 85014; 85018; 85025; 86592; 86850; 86870; 86880; 86900; 86901; 86902; 86971; 90715; A9270; J0290; J2590; J2795; J7120

== ENCOUNTER 2023-05-09 16:05 | Day surgery (SDC) | payer OTHER, SELFPAY ==
[2023-05-09 16:17] VITALS: BP 148/83; PULSE 80; RESP 19; TEMP 37.3; O2SAT 100
[2023-05-09 16:55] LABS: Basophils Absolute Auto 0.1 K/mm3 (0.0-0.1); Basophils Percent Auto 1.3 % (0.2-1.2); Eosinophils Absolute Auto 0.1 K/mm3 (0-0.3); Eosinophils Percent Auto 2.5 % (0-4.4); Hemoglobin 13.5 g/dL (12.0-15.0); Immature Granulocyte Absolute 0.03 K/mm3 (0.00-0.031); Immature Granulocyte Percent A 0.5 % (0-0.5); Lymphocytes Absolute Auto 1.65 K/mm3 (0.9-3.2); Mean Corpuscular HGB Conc 32.1 g/dl (32-36); Mean Platelet Volume 9.2 fl (7.4-10.4); Monocytes Absolute Auto 0.3 K/mm3 (0.1-0.6); Monocytes Percent Auto 6.2 % (2.6-8.5); Neutrophils Absolute Auto 3.3 K/mm3 (1.3-6.7); Neutrophils Percent Auto 59.5 % (45.5-73.1); Platelet Count Result 254 k/mm3 (150-375); Red Blood Count 4.83 M/mm3 (4.2-5.4); Red Cell Distribution Width 13.8 % (11.5-14.5); White Blood Count 5.5 K/mm3 (4.5-10.0)
--- NOTE | 2023-05-09 17:02 | ED.FEMALEGU ---
HPI - Female Genitourinary General Chief complaint: Vaginal Bleeding Stated complaint: 6 wks PP, heavy vag bleeding Time Seen by Provider: 05/09/23 16:32 Source: patient, RN notes reviewed and old records reviewed Mode of arrival: ambulatory Limitations: no limitations History of Present Illness HPI Narrative: THis is a 37 year old female 6 weeks who presents for evaluation of heavy vaginal bleeding . Patient states she had a twin vaginal delivery 6 weeks ago . SHe had been having some minor bleeding but it became heavy 4 to 5 days ago. SHe reports she is passing clots. She reports her bleeding worsened today. She is going through a pad and tampon every 45 minutes. She was seen by Dr. Lizeth Power yesterday, and she was started on Slynd yesterday. She reports she was told to come to ER for evaluation. She had minor cramping. Related Data Home Medications Medication Instructions Recorded Confirmed vit no.95-ferrous 1 tablet PO DAILY 05/09/20 05/09/20 fumarate 28 mg-folic acid 800 mcg tablet () Allergies Allergy/AdvReac Type Severity Reaction Status Date / Time No Known Allergies Allergy Verified 05/09/23 18:08 Review of Systems Review of Systems: All systems reviewed & are unremarkable except as noted in HPI and below PMFSH Past Medical History Medical History MVP (mitral valve prolapse) Surgical History Surgical History H/O dilation and curettage Family History Family History Father History of blood clots Cancer Social History Social History Smoking status: Never smoker Substance use: never Lack of Transportation: No Lack of Food: Never True Current Housing: I Have Housing Concerned About Future Housing: No Difficulty Paying Gas/Electric Bills: No Difficulty Paying for Meds: No Currently Unemployed: No Education: Bachelor's Degree Difficulty w/ Childcare or Family Care: No Gender identity (if verbalized by the patient): Female Spiritual care concerns: No Exam Const: General: no acute distress and alert Nutritional Appearance: well nourished Orientation/consciousness: patient oriented x3 HENMT: Head: normal to inspection Eyes: EOM: EOMs intact bilaterally Chest: Chest palpation & inspection: normal inspection of the chest Resp: Effort & Inspection: normal respiratory effort Auscultation: clear to auscultation bilaterally Cardio: Rate: regular rate Rhythm: regular rhythm Heart sounds: no murmurs GI: GI Palp: Yes Soft to palpation, No Tenderness to palpation present (GI), No Guarding due to palpation present (GI) and No Rigid due to palpation Auscultation: normal bowel sounds : Speculum Exam - Vagina: vaginal bleeding (dark blood pooling in vault, no clots, able to clear, then oozing left) Speculum Exam - Cervix: normal appearance of the cervix Skin: General skin exam: normal color Rashes: no rashes Wounds: no wounds Neuro: General: patient oriented x3, moves all extremities and CN's II-XI intact bilaterally Extrem: General: normal to inspection Psych: Appearance: grossly normal Mental Status: mental status grossly normal Affect: normal affect Attitude: cooperative Course Reevaluation(s) Reevaluation #1: Dr Lizeth Power came to ER and he will take patient to OR for D and C Date: 05/09/23 Time: 17:36 Vital Signs Vital signs: Vital Signs Temperature 99.2 F 05/09/23 16:17 Pulse Rate 80 05/09/23 16:17 Respiratory Rate 19 05/09/23 16:17 Blood Pressure 148/83 H 05/09/23 16:17 Pulse Oximetry 100 05/09/23 16:17 Oxygen Delivery Room Air 05/09/23 16:17 Temperature 99.2 F 05/09/23 16:17 Pulse Rate 72 05/09/23 19:00 Respiratory Rate 12 05/09/23 19:00 Blood Pre
[2023-05-09 17:07] LABS: INR 0.9; Prothrombin Time 12.7 Seconds (11.1-14.7)
[2023-05-09 17:08] LABS: Partial Thromboplastin Time 24.9 SECONDS (22.3-36.8)
--- NOTE | 2023-05-09 17:31 | PC.NURSE ---
Procedure reviewed with pt by Dr. Lizeth Power. pt voiced positive understanding, consent obtained for Hysteroscopy with dilatation and Curettage.
--- NOTE | 2023-05-09 17:32 | PM.IMHP ---
H&P: HPI History of Present Illness Date/Time: 05/09/23 17:32 Chief Complaint: The vaginal bleeding 6 weeks Narrative: since 14/04 female grand multiparous delivered twin 6 weeks ago bleeding began to corn picker and she was seen 2 days ago with a hemoglobin of 13 point. She was placed on progesterone control pill to no success she continues to bleed now heavily and is admitted for hysteroscopy dilatation curettage risks and benefits reviewed including not exclusive , aspiration bleeding, transfusion, perforation injury to bowel, bladder, ureters, or other internal organs with need for laparotomy. [facility] Past Medical History Medical History MVP (mitral valve prolapse) Surgical History Surgical History H/O dilation and curettage Family History Family History Father History of blood clots Cancer Social History Social History Smoking status: Never smoker Substance use: never Lack of Transportation: No Lack of Food: Never True Current Housing: I Have Housing Concerned About Future Housing: No Difficulty Paying Gas/Electric Bills: No Difficulty Paying for Meds: No Currently Unemployed: No Education: Bachelor's Degree Difficulty w/ Childcare or Family Care: No Gender identity (if verbalized by the patient): Female Spiritual care concerns: No Meds Home Medications and Allergies Home Medications Medication Instructions Recorded Confirmed Type vit no.95-ferrous 1 tablet PO DAILY 05/09/20 05/09/20 History fumarate 28 mg-folic acid 800 mcg tablet () Allergies Allergy/AdvReac Type Severity Reaction Status Date / Time No Known Allergies Allergy Unverified 11/17/17 06:59 Vital Signs Vital Signs - 24 hr 05/09/23 16:17 Temperature 99.2 F Pulse Rate 80 Respiratory Rate 19 Blood Pressure 148/83 H Pulse Oximetry 100 Oxygen Delivery Room Air Exam Const: General: cooperative, healthy appearing and comfortable Nutritional Appearance: average body habitus Orientation/consciousness: oriented to person, oriented to place and oriented to time HENMT: Head: normal to inspection Resp: Effort & Inspection: normal respiratory effort Cardio: Rate: regular rate Rhythm: regular rhythm Heart sounds: S1 normal heart sound present and S2 normal heart sound present GI: Inspection: normal to inspection : External Female Exam: normal external appearance Speculum Exam - Vagina: normal appearance of the vagina and vaginal bleeding Speculum Exam - Cervix: normal appearance of the cervix Bimanual exam- vagina & uterus: enlarged Bimanual Exam- Adnexa, other: normal adnexae H&P: Results Labs Labs: Short CBC 05/09/23 Range/Units 16:45 WBC 5.5 (4.5-10.0) K/mm3 Hgb 13.5 D (12.0-15.0) g/dL Hct 42.0 (37.0-47.0) % Plt Count 254 (150-375) k/mm3 Assessment and Plan Assessment and plan (1) Vaginal bleeding: Code(s): N93.9 - Abnormal uterine and vaginal bleeding, unspecified Status: Acute Plan hysteroscopy/dilatation curettage
--- NOTE | 2023-05-09 17:51 | WPDHPUPDATE1 ---
History and Physical Update Update Date/Time: 05/09/23 17:51 History and Physical has been reviewed, including an updated exam of the patient. There are NO changes in the patient's condition. Risks, benefits, and alternatives have been discussed and questions answered. Patient agrees to proceed with procedure.
[2023-05-09 17:56] VITALS: BP 153/86; PULSE 74; RESP 17; O2SAT 100
--- NOTE | 2023-05-09 18:32 | WPDANESEPPF ---
Anes - Initial Pre Proc Eval Procedure: Operation Date: 05/09/23 18:30 Proposed Procedures p D&C Suction and Sharp - Ramakrishna Power MD Date/Time: 05/09/23 18:32 Surgeon: Ramakrishna Power MD Pre Op Diagnosis: 6 wks PP, heavy vag bleeding Patient Data Age: 37 Gender: F Height: 1.68 m Weight: 61.6 kg Last Vital Signs Temp 37.3 C 05/09/23 16:17 Pulse 74 05/09/23 17:56 Resp 17 05/09/23 17:56 BP 153/86 H 05/09/23 17:56 Pulse Ox 100 05/09/23 17:56 O2 Del Method Room Air 05/09/23 16:17 Allergies Allergy/AdvReac Type Severity Reaction Status Date / Time No Known Allergies Allergy Verified 05/09/23 18:08 Home Medications Medication Instructions Recorded Confirmed Type vit no.95-ferrous 1 tablet PO DAILY 05/09/20 05/09/20 History fumarate 28 mg-folic acid 800 mcg tablet () hydrocodone 5 mg-acetaminophen 325 1 tablet PO Q4H PRN pain #20 tabs 05/09/23 Rx mg tablet Laboratory Tests 05/09/23 16:45 WBC 5.5 K/mm3 (4.5-10.0) RBC 4.83 M/mm3 (4.2-5.4) Hgb 13.5 D g/dL (12.0-15.0) Hct 42.0 % (37.0-47.0) MCV 87.0 fl (80-100) MCH 28.0 pg (26-34) MCHC 32.1 g/dl (32-36) RDW 13.8 % (11.5-14.5) Plt Count 254 k/mm3 (150-375) MPV 9.2 fl (7.4-10.4) Immature Gran % (Auto) 0.5 % (0-0.5) Neut % (Auto) 59.5 % (45.5-73.1) Lymph % (Auto) 30.0 % (18.3-44.2) [place] % (Auto) 6.2 % (2.6-8.5) Eos % (Auto) 2.5 % (0-4.4) Baso % (Auto) 1.3 H % (0.2-1.2) Lymph # (Auto) 1.65 K/mm3 (0.9-3.2) [place] # (Auto) 0.3 K/mm3 (0.1-0.6) Eos # (Auto) 0.1 K/mm3 (0-0.3) Baso # (Auto) 0.1 K/mm3 (0.0-0.1) Abs Immat Gran (auto) 0.03 K/mm3 (0.00-0.031) Absolute Neuts (auto) 3.3 K/mm3 (1.3-6.7) Absolute Nucleated RBC 0.0 K/mm3 (0.0-0.012) Nucleated RBC % 0.0 % (0.0-0.2) PT 12.7 Seconds (11.1-14.7) INR 0.9 APTT 24.9 SECONDS (22.3-36.8) Blood Type Pending Antibody Screen Pending Patient hx anesthesia problems: none Family hx anesthesia problems: none Results Review: All pre-operative results and documents have been reviewed as part of the pre-operative evaluation. [facility] Past Medical History Medical History MVP (mitral valve prolapse) Surgical History Surgical History H/O dilation and curettage Family History Family History Father History of blood clots Cancer Social History Social History Smoking status: Never smoker Substance use: never Lack of Transportation: No Lack of Food: Never True Current Housing: I Have Housing Concerned About Future Housing: No Difficulty Paying Gas/Electric Bills: No Difficulty Paying for Meds: No Currently Unemployed: No Education: Bachelor's Degree Difficulty w/ Childcare or Family Care: No Gender identity (if verbalized by the patient): Female Spiritual care concerns: No Anes - Eval Final PreProcedure Day of Procedure 05/09/23 18:32 Patient weight: normal Heart: regular rate and rhythm Lungs: clear to auscultation Airway: Mallampati scale class II Neurological: alert and oriented Last oral intake: >/= 8 hours ASA classification: II Emergent: yes Anesthetic plan: proceed Anesthesia type and monitoring: general GIVS and standard monitoring Results Review: All pre-operative results and documents have been reviewed as part of the pre-operative evaluation. Informed Consent: The patient's anesthetic plan and its attendant risks and benefits were discussed with the patient/family/POA. Questions were solicited and answers provided to the satisfaction of the patient/family/POA.
[2023-05-09] MEDS: LIDOCAINE HCL 1% LOCAL INJ 20 ML VIAL INFILTRATE (18:46)
--- NOTE | 2023-05-09 18:58 | P.OP_ITS ---
Procedure Note - Detailed Date of Procedure 05/09/23 Pre-op Diagnosis 6 wks PP, heavy vag bleeding Post-op Diagnosis Same Procedure Performed Hysteroscopy/ dilatation curettage Surgeon Ramakrishna Power MD Anesthesia MAC and Local Indications this is a 37-year-old female multiple 6 weeks out from delivery with vaginal bleeding refractory to Findings uterus sounded 10cm. Thick irregular endometrial tissue was present Description of Procedure the patient is prepped draped sterile fashion placed dorsal lithotomy position. Under excellent IV sedation weighted speculum placed posterior vagina. Ant erior lip of cervix grasped single-tooth tenaculum. 2.5cc 1% xylocaine anesthesia placed at 2, 4, 8, 10:00 a.m. the cervix. Uterus sounded to 10cm. Serial dilatation with fragmented dilators performed followed passes the [facility] hysteroscope. Thick irregular endometrial tissue was seen. It did not appear to be placental in nature. Uterus was then scraped over the entire 360? removing a large amount of thick irregular endometrium. When a good grating sound was heard the instruments were withdrawn. Blood loss estimated 25cc. All sponge, needle, instrument counts were correct. There were no immediate complications Estimated Blood Loss 25 Drains No Packing No Pathology Yes Complications No immediate complications Condition Stable Disposition PACU
[2023-05-09 19:00] VITALS: BP 125/76; PULSE 72; RESP 12; O2SAT 99
[2023-05-09] MEDS: LACTATED RINGERS 1,000 ML 30 ML IV CONT (19:00)
[2023-05-09 19:30] VITALS: BP 124/83; PULSE 70; O2SAT 98
[2023-05-09 19:45] VITALS: BP 140/83; PULSE 63
--- NOTE | 2023-05-09 20:02 | SUR.PHASEII ---
A prescription for [place] did not print in the surgery department for this patient. Patient stated to RN, I will be fine with just Tylenol and ibuprofen.
== END 2023-05-09 19:58 | disposition home or self-care (01) ==
LOC: ANHED 17:37 → ANHSURGERY 17:56
PROVIDERS: Emergency Provider General Practice; PCP Physician Assistant; Visit Provider Obstetrics & Gynecology
PROC: (CPT 59160; principal; 2023-05-09 18:30)
DX: O72.1 Other immediate postpartum hemorrhage (principal)
CPT/HCPCS: 59160; 36415; 85025; 85610; 85730; 86850; 86900; 86901; 88305; 99285; J1100; J1885; J2250; J2405; J2704; J3010; J7120

== ENCOUNTER → 2023-08-14 12:48 | Outpatient (CLI) | payer OTHER, SELFPAY ==
--- NOTE | ~2023-08-14 | MR_ITS ---
EXAMINATION: MR brain/brain stem wo/w con DATE: 08/14/2023 13:23 INDICATION: New daily persistent headache. TECHNIQUE: Magnetic resonance imaging (MRI) of the brain and brainstem was performed without and with 12 mL MultiHance intravenous contrast. COMPARISON: None. FINDINGS: There is no intracranial hemorrhage, acute infarction, or abnormal intracranial mass lesion . The ventricles are normal in size. The orbits are normal. The paranasal sinuses are clear. The mast oid air cells are normal. IMPRESSION: 1. Normal brain. Reviewed, dictated and finalized at location E. IMPRESSION: 1. Normal brain.
== END ==
PROVIDERS: PCP Physician Assistant; Visit Provider Physician Assistant
DX: G44.52 New daily persistent headache (NDPH) (principal)
CPT/HCPCS: 70553; A9577

== ENCOUNTER 2023-10-02 15:35 | Outpatient (CLI) | payer OTHER, SELFPAY ==
[2023-10-02 16:55] LABS: Basophils Absolute Auto 0.1 K/mm3 (0.0-0.1); Basophils Percent Auto 0.9 % (0.2-1.2); Eosinophils Absolute Auto 0.1 K/mm3 (0-0.3); Eosinophils Percent Auto 1.5 % (0-4.4); Hematocrit 39.3 % (37.0-47.0); Hemoglobin 13.2 g/dL (12.0-15.0); Immature Granulocyte Absolute 0.02 K/mm3 (0.00-0.031); Immature Granulocyte Percent A 0.3 % (0-0.5); Lymphocytes Absolute Auto 1.15 K/mm3 (0.9-3.2); Mean Corpuscular HGB Conc 33.6 g/dl (32-36); Mean Corpuscular Hemoglobin 29.1 pg (26-34); Mean Corpuscular Volume 86.6 fl (80-100); Mean Platelet Volume 9.4 fl (7.4-10.4); Monocytes Absolute Auto 0.5 K/mm3 (0.1-0.6); Monocytes Percent Auto 7.7 % (2.6-8.5); Neutrophils Absolute Auto 4.9 K/mm3 (1.3-6.7); Neutrophils Percent Auto 72.6 % (45.5-73.1); Platelet Count Result 260 k/mm3 (150-375); Red Blood Count 4.54 M/mm3 (4.2-5.4); Red Cell Distribution Width 12.3 % (11.5-14.5); White Blood Count 6.8 K/mm3 (4.5-10.0)
== END 2023-10-02 15:36 | disposition home or self-care (01) ==
LOC: ANHSURGERY 15:39
PROVIDERS: PCP Physician Assistant; Visit Provider Obstetrics & Gynecology
DX: N81.4 Uterovaginal prolapse, unspecified (principal); Z01.818 Encounter for other preprocedural examination
CPT/HCPCS: 36415; 85025; 86850; 86900; 86901; 86922

== ENCOUNTER 2023-11-27 11:51 | Outpatient (CLI) | payer OTHER, SELFPAY | END 2023-11-27 11:52 | disposition home or self-care (01) | PROVIDERS: PCP Physician Assistant; Visit Provider Obstetrics & Gynecology | DX: D21.9 Benign neoplasm of connective and other soft tissue, unspecified (principal); Z01.818 Encounter for other preprocedural examination | CPT/HCPCS: 36415; 86850; 86900; 86901 ==

== ENCOUNTER 2023-12-01 06:40 | Day surgery (SDC) | payer OTHER, SELFPAY ==
--- NOTE | 2023-10-02 07:09 | PM.IMHP ---
H&P: HPI History of Present Illness Date/Time: 10/02/23 07:09 Chief Complaint: Excessive bleeding/uterine prolapse/pelvic pain Narrative: Since 14/05 year tyshawn tip admitted for robotic total hysterectomy and bilateral salpingectomy secondary to uterine prolapse and vaginal bleeding. She has had multiple children and 7 to be exact. She has uterine prolapse and she has had a problem with excessive bleeding when not . Medical therapy has been refractory and she is admitted for hysterectomy and bilateral salpingectomy. Risks and benefits reviewed including not exclusive of , aspiration pneumonia, bleeding, transfusion, perforation injury to bowel, bladder, ureters, or other internal organs with need for open laparotomy. She received the [employer] handout entitled hysterectomy as well as de [place] handout. She had all questions answered. She asked to proceed PMFSH Past Medical History Medical History MVP (mitral valve prolapse) Surgical History Surgical History H/O dilation and curettage Family History Family History Father History of blood clots Cancer Social History Social History Smoking status: Never smoker Substance use: never Lack of Transportation: No Lack of Food: Never True Current Housing: I Have Housing Concerned About Future Housing: No Difficulty Paying Gas/Electric Bills: No Difficulty Paying for Meds: No Currently Unemployed: No Education: Bachelor's Degree Difficulty w/ Childcare or Family Care: No Gender identity (if verbalized by the patient): Female Spiritual care concerns: No Meds Home Medications and Allergies Home Medications Medication Instructions Recorded Confirmed Type vit no.95-ferrous 1 tablet PO DAILY 05/09/20 05/09/20 History fumarate 28 mg-folic acid 800 mcg tablet () hydrocodone 5 mg-acetaminophen 325 1 tablet PO Q4H PRN pain #20 tabs 05/09/23 Rx mg tablet Allergies Allergy/AdvReac Type Severity Reaction Status Date / Time No Known Allergies Allergy Verified 05/09/23 18:08 Exam Const: General: cooperative, healthy appearing, comfortable and average body habitus Orientation/consciousness: oriented to person, oriented to place and oriented to time HENMT: Head: normal to inspection Resp: Effort & Inspection: normal respiratory effort Cardio: Rate: regular rate Rhythm: regular rhythm Heart sounds: S1 normal heart sound present and S2 normal heart sound present GI: Inspection: normal to inspection Auscultation: normal bowel sounds : External Female Exam: normal external appearance Speculum Exam - Vagina: normal appearance of the vagina Speculum Exam - Cervix: normal appearance of the cervix (Second-degree prolapse) Bimanual exam- vagina & uterus: enlarged Bimanual Exam- Adnexa, other: normal adnexae Assessment and Plan Assessment and plan (1) Pelvic pain: Code(s): R10.2 - Pelvic and perineal pain Status: Acute (2) Vaginal bleeding: Code(s): N93.9 - Abnormal uterine and vaginal bleeding, unspecified Status: Acute (3) Uterine prolapse: Code(s): N81.4 - Uterovaginal prolapse, unspecified Status: Acute Plan Robotic total vaginal hysterectomy and bilateral salpingectomy
[2023-10-02 11:23] VITALS: BMI 20.9
--- NOTE | 2023-10-02 11:27 | PC.NURSE ---
Report to the Outpatient Waiting Room, entrance under the green pavilion located off [facility], at time 6:00 on date 10/06/23. Planned Procedure Time: 7:30. Time changes happen often and if your time is changed the preop area will call you the afternoon before. - You and your visitor will be asked to self-screen and do not enter if you have any COVID symptoms. - A mask is optional within the hospital at this time. Patients may have clear liquids (water, carbonated beverages, clear teas, apple juice) until 3 hours prior to surgery (4:30) with a maximum of 20 ounces. - No food from midnight until time of surgery Take the following medications with a SIP of water the morning of surgery: NONE DO NOT STOP ANY OF YOUR OTHER PRESCRIPTION MEDICATIONS PRIOR TO SURGERY ?EXCEPT THE FOLLOWING Medications to discontinue per physician: VITAMINS Date to take last dose: 10/02/23 Please no make-up, nail korean, hairspray, perfume, deodorant, or body powder the day of surgery. No jewelry (including any body piercings) or valuables the day of surgery, leave them at home. Please take a shower or bath the night before, or the morning of, surgery with an antibacterial soap. Wear comfortable, loose fitting clothing. - Jewelry must be removed prior to entering the operating room. Rings and piercings that are not removed may be cut off. - The hospital will not accept responsibility for valuables. - Please leave all valuables, including medications, at home the day of surgery. If you are going home after surgery, a licensed dumpster driver must drive you home. - NO public transportation without another adult if you receive anesthesia. - We recommend that an adult stay with you for 24 hours following discharge. - We also recommend that you do not drive, make important decision, drink alcoholic beverages, or take any drugs that were not prescribed by your health care provider for at least 24 hours after your discharge time. Follow any additional instructions given to you from your surgeon. If you or anyone in your household have experienced Covid symptoms in the past week, please notify your surgeon or the nurse liaison at the phone number below for possible testing. Telephone instructions given to PT Phu NICHOLS and asked if any additional questions and then verbalized understanding. Patient advised to call surgeon office or pre surgery nurse liaison [phone] if any additional questions.
--- NOTE | 2023-10-05 10:09 | P.PNAN_ITS ---
Anes - Initial Pre Proc Eval Procedure: Operation Date: 10/06/23 07:30 Proposed Procedures p Robotic Assisted Total Vaginal Hysterectomy with Bilateral Salpingectomy - Ramakrishna Power MD Date/Time: 10/05/23 10:09 Surgeon: Ramakrishna Power MD Pre Op Diagnosis: Exc Bleeding, Uterine Prolapse, Pain Patient Data Age: 38 Gender: F Height: 1.68 m Weight: 59 kg Allergies Allergy/AdvReac Type Severity Reaction Status Date / Time No Known Allergies Allergy Verified 10/02/23 11:21 Home Medications Medication Instructions Recorded Confirmed Type multivitamin 1 tablet PO DAILY 10/02/23 10/02/23 History Results Review: All pre-operative results and documents have been reviewed as part of the pre- operative evaluation. [facility] Past Medical History Medical History MVP (mitral valve prolapse) Surgical History Surgical History H/O dilation and curettage Family History Family History Father History of blood clots Cancer Social History Social History Smoking status: Never smoker Alcohol intake: current Drinks per week: 2 Substance use: never Substance use type: does not use Lack of Transportation: No Lack of Food: Never True Current Housing: I Have Housing Concerned About Future Housing: No Difficulty Paying Gas/Electric Bills: No Difficulty Paying for Meds: No Currently Unemployed: No Education: Bachelor's Degree Difficulty w/ Childcare or Family Care: No Living arrangements: with family Gender identity (if verbalized by the patient): Female Spiritual care concerns: No Anes - Eval Final PreProcedure Day of Procedure 10/05/23 10:09 Patient weight: normal Heart: regular rate and rhythm Lungs: clear to auscultation Airway: Mallampati scale class II Neurological: alert and oriented Last oral intake: >/= 8 hours ASA classification: II Emergent: no Anesthetic plan: proceed Anesthesia type and monitoring: general ETT and standard monitoring Results Review: All pre-operative results and documents have been reviewed as part of the pre- operative evaluation. Informed Consent: The patient's anesthetic plan and its attendant risks and benefits were disc ussed with the patient/family/POA. Questions were solicited and answers provided to the satisfaction of the patient/family/POA.
--- NOTE | 2023-11-22 14:06 | PC.NURSE ---
Report to the Outpatient Waiting Room, entrance under the green pavilion located off [facility], at time _0600_ on date _[id number]_. Planned Procedure Time: _0730_. Time changes happen often and if your time is changed the preop area will call you the afternoon before. - You and your visitor will be asked to self-screen and do not enter if you have any COVID symptoms. - A mask is optional within the hospital at this time. Patients may have clear liquids (water, carbonated beverages, clear teas, apple juice) until 3 hours prior to surgery with a maximum of 20 ounces. - No food from midnight until time of surgery Take the following medications with a SIP of water the morning of surgery: ___None DO NOT STOP ANY OF YOUR OTHER PRESCRIPTION MEDICATIONS PRIOR TO SURGERY ?EXCEPT THE FOLLOWING Medications to discontinue per physician ____Multivitamin Date to take last nxdr___[phone] Please no make-up, nail kuwaiti, hairspray, perfume, deodorant, or body powder the day of surgery. No jewelry (including any body piercings) or valuables the day of surgery, leave them at home. Please take a shower or bath the night before, or the morning of, surgery with an antibacterial soap. Wear comfortable, loose fitting clothing. - Jewelry must be removed prior to entering the operating room. Rings and piercings that are not removed may be cut off. - The hospital will not accept responsibility for valuables. - Please leave all valuables, including medications, at home the day of surgery. If you are going home after surgery, a licensed van driver helper must drive you home. - NO public transportation without another adult if you receive anesthesia. - We recommend that an adult stay with you for 24 hours following discharge. - We also recommend that you do not drive, make important decision, drink alcoholic beverages, or take any drugs that were not prescribed by your health care provider for at least 24 hours after your discharge time. Follow any additional instructions given to you from your surgeon. If you or anyone in your household have experienced Covid symptoms in the past week, please notify your surgeon or the nurse liaison at the phone number below for possible testing. Telephone instructions given to __Cindy and asked if any additional questions and then verbalized understanding. Patient advised to call surgeon office or pre surgery nurse liaison [phone] if any additional questions.
--- NOTE | 2023-11-28 07:06 | PM.IMHP ---
H&P: HPI History of Present Illness Date/Time: 11/28/23 07:06 Chief Complaint: Heavy bleeding with uterine prolapse and pelvic pain Narrative: A 38-year-old grand multiparous patient who is admitted for robotic hysterectomy bilateral salpingectomy secondary to excessive heavy bleeding and pelvic pain. She is had multiple episodes of excessive heavy bleeding and has been unresponsive to hormonal therapy. She understands this will make her permanently infertile. Risks and benefits reviewed including but not exclusive , aspiration, bleeding, transfusion, perforation injury to bowel, bladder, ureters, or other internal organs with need for open laparotomy. She received the [employer] handout entitled hysterectomy as well as the de [facility] handout. She had all questions answered. She asked to proceed PMFSH Past Medical History Medical History MVP (mitral valve prolapse) Surgical History Surgical History H/O dilation and curettage Family History Family History Father History of blood clots Cancer Social History Social History Smoking status: Never smoker Alcohol intake: current Drinks per week: 2 Substance use: never Substance use type: does not use Lack of Transportation: No Lack of Food: Never True Current Housing: I Have Housing Concerned About Future Housing: No Difficulty Paying Gas/Electric Bills: No Difficulty Paying for Meds: No Currently Unemployed: No Education: Bachelor's Degree Difficulty w/ Childcare or Family Care: No Living arrangements: with family Gender identity (if verbalized by the patient): Female Spiritual care concerns: No Meds Home Medications and Allergies Home Medications Medication Instructions Recorded Confirmed Type multivitamin 1 tablet PO DAILY 10/02/23 11/22/23 History ivermectin 1 % topical cream 1 applic topical HS 11/22/23 11/22/23 History (Soolantra) Allergies Allergy/AdvReac Type Severity Reaction Status Date / Time No Known Allergies Allergy Verified 11/22/23 14:04 Exam Const: General: cooperative, healthy appearing and comfortable Nutritional Appearance: average body habitus Orientation/consciousness: oriented to person, oriented to place and oriented to time Resp: Effort & Inspection: normal respiratory effort Cardio: Rate: regular rate Rhythm: regular rhythm Heart sounds: S1 normal heart sound present and S2 normal heart sound present GI: Inspection: normal to inspection : External Female Exam: normal external appearance Speculum Exam - Vagina: normal appearance of the vagina Speculum Exam - Cervix: normal appearance of the cervix (Second-degree prolapse) Bimanual exam- vagina & uterus: enlarged Bimanual Exam- Adnexa, other: normal adnexae Assessment and Plan Assessment and plan (1) Excessive bleeding: Code(s): R58 - Hemorrhage, not elsewhere classified Status: Acute (2) Pelvic pain: Code(s): R10.2 - Pelvic and perineal pain Status: Acute (3) Uterine prolapse: Code(s): N81.4 - Uterovaginal prolapse, unspecified Status: Acute Plan Robotic total vaginal hysterectomy bilateral salpingectomies
--- NOTE | 2023-11-30 14:17 | P.PNAN_ITS ---
Anes - Initial Pre Proc Eval Procedure: Operation Date: 12/01/23 07:30 Proposed Procedures p Robotic Assisted Total Vaginal Hysterectomy with Bilateral Salpingectomy - Ramakrishna Power MD Date/Time: 11/30/23 14:17 Surgeon: Ramakrishna Power MD Pre Op Diagnosis: Exc Bleeding, Uterine Prolapse, Pain Patient Data Age: 38 Gender: F Height: 1.68 m Weight: 59 kg Allergies Allergy/AdvReac Type Severity Reaction Status Date / Time No Known Allergies Allergy Verified 11/22/23 14:04 Home Medications Medication Instructions Recorded Confirmed Type multivitamin 1 tablet PO DAILY 10/02/23 11/22/23 History ivermectin 1 % topical cream 1 applic topical HS 11/22/23 11/22/23 History (Soolantra) hydrocodone 5 mg-acetaminophen 325 1 tablet PO Q4H PRN pain #30 tabs 12/01/23 Rx mg tablet Patient hx anesthesia problems: none Family hx anesthesia problems: none Results Review: All pre-operative results and documents have been reviewed as part of the pre-operative evaluation. [facility] Past Medical History Medical History MVP (mitral valve prolapse) Surgical History Surgical History H/O dilation and curettage Family History Family History Father History of blood clots Cancer Social History Social History Smoking status: Never smoker Alcohol intake: current Drinks per week: 2 Substance use: never Substance use type: does not use Lack of Transportation: No Lack of Food: Never True Current Housing: I Have Housing Concerned About Future Housing: No Difficulty Paying Gas/Electric Bills: No Difficulty Paying for Meds: No Currently Unemployed: No Education: Bachelor's Degree Difficulty w/ Childcare or Family Care: No Living arrangements: with family Gender identity (if verbalized by the patient): Female Spiritual care concerns: No Anes - Eval Final PreProcedure Day of Procedure 11/30/23 14:17 Patient weight: normal Heart: regular rate and rhythm Lungs: clear to auscultation Airway: Mallampati scale class II Neurological: alert and oriented Last oral intake: >/= 8 hours ASA classification: II Emergent: no Anesthetic plan: proceed Anesthesia type and monitoring: general ETT and standard monitoring Results Review: All pre-operative results and documents have been reviewed as part of the pre- operative evaluation. Informed Consent: The patient's anesthetic plan and its attendant risks and benefits were discussed with the patient/family/POA. Questions were solicited and answers provided to the satisfaction of the patient/family/POA.
[2023-12-01] VITALS (11 sets, daily range): BP systolic 102–134; BP diastolic 56–78; PULSE 53–86; RESP 10–20; TEMP 36.2–36.9; O2SAT 97–100
--- NOTE | 2023-12-01 06:10 | WPDHPUPDATE1 ---
History and Physical Update Update Date/Time: 12/01/23 06:10 History and Physical has been reviewed, including an updated exam of the patient. There are NO changes in the patient's condition. Risks, benefits, and alternatives have been discussed and questions answered. Patient agrees to proceed with procedure.
[2023-12-01] MEDS: LACTATED RINGERS 1,000 ML 30 ML IV CONT ×2 (06:30→08:42)
[2023-12-01] MEDS: ACETAMINOPHEN 500 MG TABLET 1000 MG PO (07:00)
[2023-12-01] MEDS: KETOROLAC 15 MG/ML VIAL (*BKC) IV PUSH (07:00)
[2023-12-01] MEDS: ceFAZolin 2 GM/D5W 50 ML 2 GM/50 ML BAG IVPB (07:26)
--- NOTE | 2023-12-01 08:26 | P.OP_ITS ---
Procedure Note - Detailed Date of Procedure 12/01/23 Pre-op Diagnosis Exc Bleeding, Uterine Prolapse, Pain Post-op Diagnosis Same Procedure Performed Robotic total vaginal hysterectomy and bilateral salpingectomy Surgeon Ramakrishna Power MD Anesthesia General Indications so 38 grand multiparous with bleeding prolapse and pain Findings enlarged uterus second-degree prolapse. Normal-appearing ovaries and tubes. Description of Procedure Patient was prepped draped in the normal sterile fashion placed in dorsal lithotomy position. Under excellent general trach anesthesia weighted speculum placed in posterior fornix vagina. Anterior lip of the cervix grasped with single-tooth tenaculum. Uterus sounded to 11cm. Serial dilatation with fragmented performed followed by passage of the 10. AMIRAH and the 3. Cold cup. Next the 16 Thai catheter was placed in the bladder and drained clear urine. The weighted speculum and single-tooth removed and the gloves were changed. A supraumbilical incision made the Veress needle passed in the abdomen. Abdomen filled with CO2 gas [id number]. The 8mm trocar advanced under direct visualization assuring no injury. Patient placed in 18? in Trendelenburg and right left lateral quadrant incisions made. 8Mm trocars advanced under direct visualization assuring no injury. Right upper quadrant incision made the 8mm trocar advanced under direct visualization assuring no injury. The robot was docked. Attention was turned to the financial health counselor. The left fallopian tube was skeletonized away from the ovarian complex and left attached to its uterine origin this was repeated to the right fallopian tube. The left round ligament was grasped, burned, cut. Anterior bladder flap was formed by sharply dissecting the peritoneum and reflecting the bladder caudally away from the cervix uterus the opposite round ligament was clamped, burned, cut. Next conserving the left ovary, the utero-ovarian ligament was clamped, burned, cut and brought to the level of previously cut round ligament. In similar fashion on the right, the right ovary was conserved byClamping burning and cutting the uterine ovarian ligament and bringing this to the previously cut round ligament on the right. The cardinal broad ligaments were skeletonized on the left clamping burning cutting hugging the cervix uterus until large tortuous blood vessels could be seen on the left. These were individually clamped, burned, cut. A similar fashion on the right cardinal broad ligaments were serially skeletonized clamping burning cutting hugging the cervix uterus until the exposed large u terine vessels were noted on the right. These were individually clamped, burned, cut. Blanching of the uterus was noted that point in a colpotomy incision was made. Cervix uterus and tubes removed through the vagina. The vagina closed with continuous running 0V lock from lateral edge to lateral edge back to midline. Irrigation undertaken to clear and the raw surface areas sprinkled with Singer term. Hemostasis was assured. The robot was undocked. The trocars removed after gas removed from the abdomen. The incisions closed with 4 Monocryl and glue. The instruments removed from the vagina the patient was awakened went to recovery in satisfactory condition. All sponge, needle, instrument counts were correct. There were no immediate complications upon completion of the procedure. Estimated Blood Loss 25 Drains No Packing No Pathology Yes Complications No immediate complications Condition Stable Disposition PACU
--- NOTE | 2023-12-01 08:30 | PM.DS ---
DS: Admitting Diagnosis Discharge Date 12/01/23 Admitting Diagnosis Pelvic pain/excessive bleeding/ uterine prolapse DS: Discharge Diagnosis Discharge Diagnosis (1) Excessive bleeding: Code(s): R58 - Hemorrhage, not elsewhere classified Status: Acute (2) Uterine prolapse: Code(s): N81.4 - Uterovaginal prolapse, unspecified Status: Acute (3) Pelvic pain: Code(s): R10.2 - Pelvic and perineal pain Status: Acute DS: Summary Hospital Course Reason for hospitalization: patient was admitted for robotic total vaginal hysterectomy and bilateral salpingectomy on 12/01 23. Hospital Course: Patient underwent an unremarkable procedure is noted on 12/01/2023. Her hospital course unremarkable. She remained afebrile. She was voiding without difficulty, eating regular diet, ambulating, passing gas and generally without complaints. Time Spent with Patient Time attestation: Total time spent providing and/or coordinating discharge services: Exam Const: General: cooperative, healthy appearing and comfortable Nutritional Appearance: average body habitus Orientation/consciousness: oriented to person, oriented to place and oriented to time HENMT: Head: normal to inspection Resp: Effort & Inspection: normal respiratory effort Cardio: Rate: regular rate Rhythm: regular rhythm Heart sounds: S1 normal heart sound present and S2 normal heart sound present GI: Inspection: normal to inspection and incision ( Wounds are clean dry and intact) DS: Data Data Completed and Pending Pending studies at discharge: Pending at discharge 12/01/23 07:55 Surgical [PTH] Routine Discharge Plan Discharge Patient Disposition: Home, Self-Care Patient Instructions: Hysterectomy (DC) Stand Alone Forms: General Discharge Instructions Follow-up/Referrals: Ramakrishna Morales MD [Physician] - Discharge Medications: New hydrocodone-acetaminophen 5-325 mg tablet 1 tablet PO Q4H PRN (Reason: pain) Qty: 30 0RF No Action multivitamin Tablet 1 tablet PO DAILY ivermectin [Soolantra] 1 % cream 1 applic TOPICAL HS
[2023-12-01] MEDS: fentaNYL CITRATE INJ (*CRX) 100 MCG/2 ML VIAL 25 MCG IV PUSH ×3 (09:19→09:34)
--- NOTE | 2023-12-01 10:00 | SUR.PHASEI ---
0937: 25mcg of Fentanyl given. RN forgot to chart in DEC before transferring the orders. A total of 100mcg given.
[2023-12-01] MEDS: KETOROLAC 30 MG/ML VIAL (*BKC) IV PUSH ×2 (10:35→16:56)
[2023-12-01] MEDS: DEXTROSE 5%/LACTATED RINGERS 1,000 ML 125 ML IV CONT (10:35)
[2023-12-01] MEDS: ENOXAPARIN 40 MG/0.4 ML SYRINGE SUB-Q (10:36)
[2023-12-01] MEDS: SIMETHICONE 80 MG TAB.CHEW PO (16:54)
[2023-12-01] MEDS: DOCUSATE SODIUM 100 MG CAPSULE PO (16:56)
== END 2023-12-01 20:35 | disposition home or self-care (01) ==
LOC: ANHSURGERY 06:40 → ANHOB2 10:21
PROVIDERS: PCP Physician Assistant; Visit Provider Obstetrics & Gynecology
PROC: (CPT 58552; principal; 2023-12-01 07:30)
DX: N81.2 Incomplete uterovaginal prolapse (principal); N93.9 Abnormal uterine and vaginal bleeding, unspecified; R10.2 Pelvic and perineal pain; N88.8 Other specified noninflammatory disorders of cervix uteri
CPT/HCPCS: 58552; S2900; 36415; 86850; 86900; 86901; 88307; 99199; A9270; J0690; J1100; J1170; J1200; J1650; J1885; J2250; J2405; J2704; J3010; J7030; J7120; J7121

== ENCOUNTER 2025-06-08 23:15 | Emergency (ER) | payer OTHER, SELFPAY ==
--- NOTE | ~2025-06-08 | CT_ITS ---
EXAMINATION: CT abdomen pelvis w con DATE: 06/09/2025 00:43 INDICATION: Right lower quadrant pain TECHNIQUE: Computed tomography (CT) of the abdomen and pelvis was performed with 100 cc Omnipaque 350 intravenous contrast. The dose-length product was 217.40 mGy-cm. Automated exposure control and iterative reconstruction technique were employed. COMPARISON: None. FINDINGS: There is dependent atelectasis. Heart size normal. The liver, spleen, pancreas, adrenal glands are unremarkable. There is a 3 mm nonobstructing right renal stone. Gallbladder is contracted. There is laxity of the anterior abdominal wall musculature. Nonobstructive bowel gas pattern. There is a 2.2 cm right ovarian cyst. Normal appendix. No acute osseous abnormality. IMPRESSION: 1. Right ovarian cyst measuring 2.2 cm. 2: Nonobstructing 3 mm right renal stone. Reviewed, dictated and finalized at location O.
[2025-06-08 23:21] VITALS: BP 156/86; PULSE 92; RESP 24; TEMP 36.9; O2SAT 99
--- NOTE | 2025-06-08 23:31 | PC.NURSE ---
Rn attempted to get urine from pt at this time. Pt states she just went before she came in.
[2025-06-08 23:39] LABS: Hematocrit 43.7 % (37.0-47.0); Hemoglobin 15.0 g/dL (12.0-15.0); Immature Granulocyte Percent A 0.6 % (0-0.5); Lymphocytes Absolute Auto 1.51 K/mm3 (0.9-3.2); Mean Corpuscular HGB Conc 34.3 g/dl (32-36); Mean Corpuscular Hemoglobin 30.5 pg (26-34); Mean Corpuscular Volume 88.8 fl (80-100); Nucleated Red Blood Cells Absolute Auto 0.000 K/mm3 (0.0-0.012); Nucleated Red Blood Cells Perc 0.0 % (0.0-0.2); Platelet Count Result 271 k/mm3 (150-375); Red Blood Count 4.92 M/mm3 (4.2-5.4); White Blood Count 10.0 K/mm3 (4.5-10.0)
[2025-06-08 23:45] LABS: Alanine Aminotransferase 24 U/L (6-35); Albumin Level 5.1 g/dL (3.5-5.1); Alkaline Phosphatase 65 U/L (38-126); Anion Gap 12 mmol/L (4-12); Aspartate Amino Transferase 35 U/L (14-36); Bilirubin,Total 0.6 mg/dL (0.2-1.3); Blood Urea Nitrogen 12 mg/dL (7-17); Calcium 9.8 mg/dL (8.4-10.2); Carbon Dioxide 26 mmol/L (22-30); Chloride 103 mmol/L (98-107); Estimated CRCL calculation 92 ml/min; Estimated Glomerular Filt Rate > 60; Glucose 105 mg/dL (65-110); Lipase 156 U/L (23-300); Magnesium 2.0 mg/dL (1.6-2.3); Potassium 3.3 mmol/L (3.4-5.0); Sodium 141 mmol/L (137-145); Total Protein 8.4 g/dL (6.3-8.2)
--- NOTE | 2025-06-08 23:50 | ED.ABDPAIN ---
HPI - Abdominal Pain General Chief Complaint: Abdominal Pain Stated Complaint: abd pain Time Seen by Provider: 06/08/25 23:23 History of Present Illness HPI narrative: Patient is a 39-year-old female who presents emergency department this evening complaining of right lower quadrant abdominal pain. States the pain has been ongoing for few months he but throughout the past 2 weeks and it has progressively been worsening. Patient saw her OBGYN for this pain and states that her Ob felt an enlarged ovary. She has a scheduled ultrasound tomorrow but patient states that she felt as though overnight the pain worsened so she decided to come to the ED for further evaluation. Admits that she still has her appendix. Denies any urinary symptoms including dysuria or hematuria. There are no additional modifying, alleviating, or precipitating factors at this time. Related Data Home Medications ?Medication ?Instructions ?Recorded ?Confirmed ?Last Taken ?Type multivitamin 1 tablet PO DAILY 10/02/23 11/22/23 Unknown History ivermectin 1 % topical cream 1 applic topical HS 11/22/23 11/22/23 Unknown History (Soolantra) Allergies Allergy/AdvReac Type Severity Reaction Status Date / Time No Known Allergies Allergy Verified 11/22/23 14:04 Review of Systems Review of Systems: All systems are reviewed and are negative unless stated otherwise in the HPI. [facility] Past Medical History Medical History MVP (mitral valve prolapse) Surgical History Surgical History H/O dilation and curettage Family History Family History Father History of blood clots Cancer Social History Social History Smoking status: Never smoker Alcohol intake: current Drinks per week: 2 Substance use: never Substance use type: does not use Lack of Transportation: No Lack of Food: Never True Current Housing: I Have Housing Concerned About Future Housing: No Difficulty Paying Gas/Electric Bills: No Difficulty Paying for Meds: No Currently Unemployed: No Education: Bachelor's Degree Difficulty w/ Childcare or Family Care: No Living arrangements: with family Gender identity (if verbalized by the patient): Female Spiritual care concerns: No Exam Narrative: General: Alert, awake, afebrile, in no acute distress. HEENT: PERRL, no rhinorrhea, no post nasal drip, oropharynx clear. Neck: Trachea midline, no JVD, no lymphadenopathy. Cardiovascular: Regular rate and rhythm, no murmurs, rubs or gallops, no peripheral edema. Respiratory: Clear to auscultation bilaterally, no tachypnea, no wheezing, no rhonchi, no rubs, no respiratory distress. Abdomen: Soft, mild tenderness to the right lower quadrant, nondistended, no rebound, no guarding, no peritoneal signs. Musculoskeletal: No joint swelling or deformity, normal muscle tone. Skin: No rashes or petechia, no signs of infection. Psychiatric: Alert and oriented, normal behavior and judgment for situation. Neurological: Alert and oriented to person, place, and time. Follows all commands. No focal deficits, speech is clear and fluent. Course Vital Signs Vital signs: Vital Signs Temperature 98.4 F 06/08/25 23:21 Pulse Rate 92 06/08/25 23:21 Respiratory Rate 24 H 06/08/25 23:21 Blood Pressure 156/86 H 06/08/25 23:21 Pulse Oximetry 99 06/08/25 23:21 Oxygen Delivery Room Air 06/08/25 23:21 Temperature 98.4 F 06/08/25 23:21 Pulse Rate 83 06/09/25 01:19 Respiratory Rate 15 06/09/25 01:19 Blood Pressure 122/82 06/09/25 01:19 Pulse Oximetry 100 06/09/25 01:19 Oxygen Delivery Room Air 06/08/25 23:21 MDM - Abdominal Pain MDM Narrative Medical decision making narrative: The patient was evaluated by myself in the emergency department. History is obtained from patient who is an independent historian and physical exam was performed. External medical records were reviewed at this time. IV was established and pertinent tests were ordered. Laboratory results obtained revealing no acute process. Imaging studies obtained included CT abdomen pelvis with IV contrast which was independently interpreted by me revealing a simple 2.2 cm right ovarian cyst, normal appendix otherwise no acute process, which is pending final radiology interpretation. Patient was informed of these findings at bedside. She was informed that we do not have ultrasound overnight but we can call them in to perform a pelvic ultrasound for evaluation of blood flow to her bilateral ovaries, however, patient declined stating that she wants to just going for her scheduled ultrasound this morning. She is currently resting comfortably, denies any abdominal pain. Differential diagnosis considerations include acute appendicitis, ovarian cyst/ovarian torsion, constipation, ectopic . Comorbidities impacting this visit include none. I have evaluated and discussed social determinants of health with the patient that could potentially impact subsequent diagnosis and treatment plans. On repeat assessment of the patient, reevaluation revealed that the patient is doing well and is in no acute distress. Patient symptoms have improved since she arrived to our emergency department. Repeat vital signs were all reviewed and noted to be stable. Differential diagnosis and treatment plan were discussed with the patient at bedside. Patient agrees with discussion and after shared medical decision making agrees with [admission/discharge]. All questions were answered to the patient's satisfaction. Patient will follow up with her OBGYN this morning for her scheduled ultrasound. Patient was provided with strict return precautions and instructed to return to the emergency department if any new or worsening symptoms develop. The patient was discharged in stable condition. Lab Data 06/08/25 23:28 06/08/25 23:28 Labs: Lab Results 06/08/25 06/09/25 06/09/25 Range/Units 23:28 00:10 00:12 WBC 10.0 (4.5-10.0) K/mm3 RBC 4.92 (4.2-5.4) M/mm3 Hgb 15.0 (12.0-15.0) g/dL Hct 43.7 (37.0-47.0) % MCV 88.8 (80-100) fl MCH 30.5 (26-34) pg MCHC 34.3 (32-36) g/dl RDW 11.6 (11.5-14.5) % Plt Count 271 (150-375) k/mm3 MPV 9.0 (7.4-10.4) fl Immature Gran % (Auto) 0.6 H (0-0.5) % Neut % (Auto) 76.5 H (45.5-73.1) % Lymph % (Auto) 15.2 L (18.3-44.2) % [place] % (Auto) 5.7 (2.6-8.5) % Eos % (Auto) 1.0 (0-4.4) % Baso % (Auto) 1.0 (0.2-1.2) % Lymph # (Auto) 1.51 (0.9-3.2) K/mm3 [place] # (Auto) 0.6 (0.1-0.6) K/mm3 Eos # (Auto) 0.1 (0-0.3) K/mm3 Baso # (Auto) 0.1 (0.0-0.1) K/mm3 Abs Immat Gran (auto) 0.06 H (0.00-0.031) K/mm3 Absolute Neuts (auto) 7.6 H (1.3-6.7) K/mm3 Absolute Nucleated RBC 0.000 (0.0-0.012) K/mm3 Nucleated RBC % 0.0 (0.0-0.2) % Sodium 141 (137-145) mmol/L Potassium 3.3 L (3.4-5.0) mmol/L Chloride 103 (98-107) mmol/L Carbon Dioxide 26 (22-30) mmol/L Anion Gap 12 (4-12) mmol/L BUN 12 (7-17) mg/dL Creatinine 0.66 L (0.7-1.0) mg/dL Estim Creat Clear Calc 92 ml/min Estimated GFR > 60 (59 - ) Glucose 105 (65-110) mg/dL Calcium 9.8 (8.4-10.2) mg/dL Magnesium 2.0 (1.6-2.3) mg/dL Total Bilirubin 0.6 (0.2-1.3) mg/dL AST 35 (14-36) U/L ALT 24 (6-35) U/L Alkaline Phosphatase 65 (38-126) U/L Total Protein 8.4 H (6.3-8.2) g/dL Albumin 5.1 (3.5-5.1) g/dL Lipase 156 (23-300) U/L Serum HCG, Qual Negative Urine Color Yellow (Yellow) Urine Appearance Clear (Clear) Urine pH 7.5 (5.0-9.0) Ur Specific [place] 1.013 (1.001-1.035) Urine Protein Negative (Negative) mg/dL Urine Glucose (UA) Negative (Negative) mg/dL Urine Ketones Negative (Negative) mg/dL Ur Blood (Man) Negative (Negative) Urine Nitrate Negative (Negative) Urine Bilirubin Negative (Negative) Urine Urobilinogen 0.2 (<2.0) mg/dL Leukocyte Esterase Rfl Negative (Negative) DONNA/UL POC Urine HCG, Qual Negative (Negative) Discharge Plan Discharge Clinical Impression: Cyst of right ovary Patient Disposition: Home Condition: Improved Instructions: Antibiotic Form, Ovarian Cyst (ED) Additional Instructions: Please follow-up with your OBGYN as scheduled for your ultrasound appointment this morning. Return to the ED if any new or worsening symptoms develop. Patient Language: Dutch Prescriptions: No Action multivitamin Tablet 1 tablet PO DAILY ivermectin [Soolantra] 1 % cream 1 applic TOPICAL HS hydrocodone-acetaminophen 5-325 mg tablet 1 tablet PO Q4H PRN (Reason: pain) Qty: 30 0RF Follow-up/Referrals: Ramakrishna Morales MD [Physician, BILINGUAL OFFICE ASSISTANT] - 1 Day Menmoni,RAJINDER Whitmore [Primary Care Provider, Unknown] Time of Disposition: 01:43
--- NOTE | 2025-06-09 00:08 | PC.NURSE ---
Pt states she has a hx of hysterectomy.
[2025-06-09 00:14] LABS: BEDSIDEPREGUCG Negative (Negative)
[2025-06-09 00:17] LABS: Add Urine Microscopic? NO; Appearance Urine Clear (Clear); Glucose Urine UA Negative (Negative); Leukocyte Esterase Ur Negative LEU/UL (Negative); Nitrate Urine Negative (Negative); Specific Grav Ur 1.013 (1.001-1.035)
[2025-06-09 00:47] LABS: SPREG INTERNAL CONTROL Positive; Serum Qual hCG Negative
[2025-06-09 01:19] VITALS: BP 122/82; PULSE 83; RESP 15; O2SAT 100
== END 2025-06-09 01:53 | disposition home or self-care (01) ==
PROVIDERS: Emergency Provider Emergency Medicine; PCP Physician Assistant
DX: N83.201 Unspecified ovarian cyst, right side (principal)
CPT/HCPCS: 36415; 74177; 80053; 81003; 81025; 83690; 83735; 84703; 85025; 99284; Q9967

== ENCOUNTER 2025-07-14 15:33 | Outpatient (CLI) | payer OTHER, SELFPAY ==
--- NOTE | ~2025-07-14 | US_ITS ---
EXAMINATION: US soft tissue head and neck, 07/14/2025 15:36 CDT HISTORY: cervical lymphadenopathy Comparison: None Technique: Pham-scale and color Doppler images were obtained. Findings: There are bilateral incidental thyroid nodules noted the largest in the right mid pole 0.9 x 0.5 cm and the largest cystic in appearance of the left mid pole 1.5 x 0.8 cm. Correlating with the palpable area there is no abnormal mass or mass effect. No abnormal flow IMPRESSION: 1. There is no ultrasound correlate to the palpable area in the left neck. 2. Bilateral thyroid nodules incompletely characterized. Dedicated thyroid ultrasound is recommended Reviewed, dictated and finalized at location P. IMPRESSION: 1. There is no ultrasound correlate to the palpable area in the left neck. 2. Bilateral thyroid nodules incompletely characterized. Dedicated thyroid ultr asound is recommended
== END 2025-07-14 15:34 | disposition home or self-care (01) ==
LOC: MICIMG 15:33
PROVIDERS: PCP Physician Assistant; Visit Provider Physician Assistant
DX: R59.0 Localized enlarged lymph nodes (principal); E04.2 Nontoxic multinodular goiter
CPT/HCPCS: 76536

== ENCOUNTER 2025-07-21 15:06 | Outpatient (CLI) | payer OTHER, SELFPAY ==
--- NOTE | ~2025-07-21 | US_ITS ---
Clinical history: Multiple thyroid nodules. EXAM:Ultrasound thyroid TECHNIQUE:Multiple static grayscale images and color Doppler images were obtained of the thyroid gland Comparisons:Ultrasound soft tissue neck 07/14/2025 FINDINGS: Right thyroid lobe measures 5.9 x 1.7 x 1.7 cm and is homogeneous. Normal vascularity. There is a 1.3 x 0.8 cm solid hypoechoic wider than tall nodule in the left mid thyroid lobe. TR 4. There is a 1.2 x 0.8 x 0.9 cm water than tall hypoechoic solid nodule in the left inferior thyroid lobe. TR 4. There is a 0.4 x 0.3 x 0.3 cm cyst in the left inferior thyroid lobe. There is a 0.6 x 0.4 x 0.3 cm colloid cyst in the left thyroid lobe. TR2 There is a 0.6 x 0.6 x 0.6 cm solid hypoechoic nodule in the right inferior thyroid lobe. TR 4. There is a 0.5 x 0.4 x 0.3 cm hypoechoic solid nodule in the right inferior thyroid lobe with a few echogenic foci possibly calcifications. TR 5. There is a 0.2 possible colloid cyst in the right inferior thyroid lobe. The thyroid lobe measures 5.4 x 1.5 x 1.5 cm and is homogeneous. Normal vascularity. This is a 0.3 cm in this mass. IMPRESSION: 1. Bilateral thyroid nodules. A follow-up thyroid ultrasound in 6 months is recommended. Reviewed, dictated and finalized at location Q. IMPRESSION: 1. Bilateral thyroid nodules. A follow-up thyroid ultrasound in 6 months is rec ommended.
== END 2025-07-21 15:07 | disposition home or self-care (01) ==
LOC: MICIMG 15:07
PROVIDERS: PCP Physician Assistant; Visit Provider Physician Assistant
DX: E04.2 Nontoxic multinodular goiter (principal)
CPT/HCPCS: 76536